=== PATIENT | female | born 1925 | race Caucasian/White ===

== ENCOUNTER 2016-08-18 10:12 | Emergency (ER) | payer MEDICARE, OTHER ==
[2016-08-18 10:46] VITALS: BP 116/63
--- NOTE | 2016-08-18 11:26 | EDM.PDOC ---
ED HPI Skin/Rash - General Chief Complaint: Skin Complaint Stated Complaint: LOWER BODY RASH Time Seen by Provider: 08/18/16 11:00 Source: Reports: Patient, Family (daughter) - History of Present Illness INITIAL COMMENTS - FREE TEXT/NARRATIVE: Patient presents with rash that started on lower back 6 days ago and has since spread laterally around the side to her right lower abdomen. The spreading from lateral side to abdomen just occurred in last 18 hours per daughter. Pt has dementia and has lived with her daughter for 3.5 years. Pt hasn't complained about the rash and seems comfortable. Daughter has noticed that her dementia has seemed a little worse than usual for about a week and has also noticed a foul smell from her urine. No dysuria, frequency or other changes that she knows of. Pt denies dysuria or other changes. Appetite has been decreased a few days. - Related Data Allergies Allergy/AdvReac Type Severity Reaction Status Date / Time penicillin G Allergy Cannot Verified 08/18/16 10:27 Remember venom-honey bee Allergy Cannot Verified 08/18/16 10:27 [bee venom (honey bee)] Remember Home Meds: Ambulatory Orders Medication Instructions Recorded Confirmed Clopidogrel Bisulfate [Clopidogrel] 75 mg PO BEDTIME 08/18/16 08/18/16 Donepezil HCl [Donepezil HCl] 10 mg PO BEDTIME 08/18/16 08/18/16 FA/Lycopene/Lut/MV,Ca,Iron,Min 1 tab PO DAILY 08/18/16 08/18/16 [Centrum] Levothyroxine Sodium [Synthroid] 112 mcg PO BEDTIME 08/18/16 08/18/16 Melatonin 5 mg PO BEDTIME 08/18/16 08/18/16 Memantine HCl [Namenda] 5 mg PO BID 08/18/16 08/18/16 Metoprolol Succinate [Toprol XL] 25 mg PO BEDTIME 08/18/16 08/18/16 Mirtazapine [Remeron] 22.5 mg PO BEDTIME 08/18/16 08/18/16 Oxybutynin Chloride [Ditropan Xl] 10 mg PO BEDTIME 08/18/16 08/18/16 Sertraline [Zoloft] 100 mg PO BID 08/18/16 08/18/16 Valsartan [Diovan] 160 mg PO BEDTIME 08/18/16 08/18/16 Vit B12/Iod/Mg/Zn/Se/Herb#193 1 tab PO BEDTIME 08/18/16 08/18/16 [Adrenoid Capsule] atorvaSTATin [Lipitor] 10 mg PO BEDTIME 08/18/16 08/18/16 risperiDONE [risperiDONE] 0.25 mg PO BEDTIME 08/18/16 08/18/16 Social & Family History - Tobacco Use Smoking Status *Q: Never Smoker Second Hand Smoke Exposure: Yes - Caffeine Use Caffeine Use: Reports: Coffee - Recreational Drug Use Recreational Drug Use: No ED ROS GENERAL - Review of Systems Review Of Systems: See Below Constitutional: Reports: decreased appetite. Denies: fever, chills HEENT: Reports: No symptoms Respiratory: Reports: cough (mild for a couple days). Denies: shortness of breath Cardiovascular: Denies: Chest pain, Syncope GI/Abdominal: Reports: Constipation (alternates between constipation and diarrhea but usually passes stools [id number]. Most recent was yesterday.), Diarrhea. Denies: Stool incontinence, Vomiting : Denies: dysuria, pain, urgency, urinary retention Musculoskeletal: Reports: no symptoms Skin: Denies: cyanosis, jaundice, mottled, pallor, diaphoresis Neurological: Reports: confusion (chronic dementia), difficulty walking (a little weaker than usual and walking less), weakness. Denies: dizziness Psychiatric: Denies: Agitation, Anxiety ED EXAM, SKIN/RASH Exam: See Below Exam Limited By: No limitations General Appearance: alert, WD/WN, no apparent distress Eye Exam: bilateral eye: EOMI, normal inspection, PERRL Ears: normal external exam, hearing grossly normal Nose: normal inspection Throat/Mouth: Normal lips, Normal voice, No airway compromise Head: atraumatic, normocephalic Neck: full range of motion Respiratory/Chest: no respiratory distress, lungs clear, normal breath sounds, no accessory muscle use. No: crackles, rales, rhonchi, wheezing, stridor Cardiovascular: regular rate, rhythm, no murmur GI/Abdominal: soft, non tender (initially LUQ seemed tender but after she became accustomed to my palpation it wasn't tender.), no organomegaly, distended (mildly). No: rigid Back Exam: No: CVA tenderness (L), CVA tenderness (R) Extremities: normal inspection, normal range of motion, non-tender, no pedal edema Neurological: alert, no motor/sensory deficits Psychiatric: normal affect, normal mood Skin: Warm, Dry, Intact, Normal color, No rash Location, Skin: abdomen, back (an erythematous band of rash extends from lumbar midline to anterior midline at low abdomen. The rash is approx 5 inches wide and has numerous scaly, crusty patches. No acute blisters currently but appearance of old blisters that have dried and cracked open. Consistent with shingles.) Associated features: No: warmth, tenderness, swelling, induration Course - Vital Signs Last Recorded V/S: Last Vital Signs Temp 99.9 F 08/18/16 10:40 Pulse 63 08/18/16 10:40 Resp 18 08/18/16 10:40 BP 116/63 08/18/16 10:40 Pulse Ox 93 L 08/18/16 10:40 - Orders/Labs/Meds Orders: Active Orders 24 hr Category Date Time Status CULTURE URINE [RM] Stat Lab 08/18/16 12:37 Ordered Ciprofloxacin [Ciprofloxacin HCl] Med 08/18/16 12:45 Ordered 250 mg PO BID valACYclovir [Valtrex] Med 08/18/16 12:45 Ordered 1,000 mg PO TID Medication Orders Ciprofloxacin (Ciprofloxacin Hcl) 250 mg PO BID [facility] Stop: 08/18/16 21:01 Last Admin: 08/18/16 13:03 Dose: 250 mg Valacyclovir HCl (Valtrex) 1,000 mg PO TID TANYA Stop: 08/18/16 21:01 Last Admin: 08/18/16 13:03 Dose: 1,000 mg Labs: Laboratory Tests 08/18/16 08/18/16 08/18/16 Range/Units 11:25 11:25 11:45 WBC 8.1 (5.0-10.0) 10^3/uL RBC 4.36 (3.80-5.50) 10^6/uL Hgb 13.1 (12.0-16.0) g/dL Hct 39.2 (37.0-47.0) % MCV 89.8 (82.0-92.0) fL MCH 30.0 (27.0-31.0) pg MCHC 33.4 (32.0-36.0) g/dL RDW 14.6 H (11.5-14.5) % Plt Count 144 L (150-300) 10^3/uL MPV 6.4 L (7.4-10.4) fL Neut % (Auto) 50.9 (50.0-70.0) % Lymph % (Auto) 40.4 H (20.0-40.0) % [place] % (Auto) 6.1 (2.0-8.0) % Eos % (Auto) 1.9 (1.0-3.0) % Baso % (Auto) 0.7 (0.0-1.0) % Neut # 4.0 (2.5-7.0) 10^3/uL Lymph # 3.3 (1.0-4.0) 10^3/uL [place] # 0.5 (0.1-0.8) 10^3/uL Eos # 0.2 (0.1-0.3) 10^3/uL Baso # 0.1 (0.0-0.1) 10^3/uL Sodium 144 (136-145) mmol/L Potassium 3.8 (3.3-5.3) mmol/L Chloride 108 (98-115) mmol/L Carbon Dioxide 26.1 (21.0-32.0) mmol/L BUN 24 (6-25) mg/dL Creatinine 1.04 (0.51-1.17) mg/dL Est Cr Clr Drug Dosing 29.00 mL/min Estimated GFR (MDRD) 50 mL/min Glucose 113 H (70-110) mg/dL Calcium 8.5 L (8.7-10.3) mg/dL Specimen Type Urinvoid Urine Color Dark yellow H (YELLOW) Urine Appearance Clear (CLEAR) Urine pH 5.5 (5.0-9.0) Ur Specific [place] 1.020 (1.005-1.030) Urine Protein 30 H (NEGATIVE) mg/dL Urine Glucose (UA) Negative (NEGATIVE) mg/dL Urine Ketones Trace H (NEGATIVE) mg/dL Urine Occult Blood Negative (NEGATIVE) Urine Nitrite Negative (NEGATIVE) Urine Bilirubin Negative (NEGATIVE) Urine Urobilinogen 0.2 (0.2-1.0) E.U./dL Ur Leukocyte Esterase Small H (NEGATIVE) Urine RBC 0-5 /HPF Urine WBC 5-10 H /HPF Ur Epithelial Cells Rare /LPF Urine Bacteria Moderate H (NONE TO FEW) /HPF Urine Yeast Few H (NEGATIVE) /HPF Meds: Medications Generic Name Dose Route Start Last Admin Trade Name Frelino PRN Reason Stop Dose Admin Ciprofloxacin 250 mg 08/18/16 12:45 08/18/16 13:03 Ciprofloxacin Hcl PO 08/18/16 21:01 250 mg BID TANYA Administration Valacyclovir HCl 1,000 mg 08/18/16 12:45 08/18/16 13:03 Valtrex PO 08/18/16 21:01 1,000 mg TID TANYA Administration Discontinued Medications Generic Name Dose Route Start Last Admin Trade Name Freq PRN Reason Stop Dose Admin Ciprofloxacin Confirm 08/18/16 12:53 Ciprofloxacin Hcl Administered 08/18/16 12:54 Dose 250 mg .ROUTE .STK-MED ONE Valacyclovir HCl Confirm 08/18/16 12:56 Valtrex Administered 08/18/16 12:57 Dose 3,000 mg .ROUTE .STK-MED ONE - Re-Assessments/Exams Free Text/Narrative Re-Assessment/Exam: 08/18/16 12:52 Discussed findings and treatment plans with pt's daughter. Initiated treatment with Cipro and Valtrex in ER and dispensed doses for first 24 hours from ER. Patient remained stable throughout ER course and discharge. Departure - Departure Time of Disposition: 12:49 Disposition: Home, Self-Care 01 Condition: good Clinical Impression: Shingles outbreak Qualifiers: Herpes zoster complications: without complications Qualified Code(s): B02.9 - Zoster without complications UTI (urinary tract infection) Qualifiers: Urinary tract infection type: acute cystitis Hematuria presence: without hematuria Qualified Code(s): N30.00 - Acute cystitis without hematuria Instructions: Shingles, [id number] Referrals: Radu Domingo MD [Primary Care Provider] - Forms: ED Department Discharge Additional Instructions: 1. Take the Valacyclovir and Cipro as directed. 2. Follow up with your PCP in a week for recheck of the Shingles and the UTI. 3. Recheck sooner if worsening. - My Orders Last 24 Hours: My Active Orders 08/18/16 12:37 CULTURE URINE [RM] Stat 08/18/16 12:45 Ciprofloxacin [Ciprofloxacin HCl] 250 mg PO BID valACYclovir [Valtrex] 1,000 mg PO TID - Assessment/Plan Last 24 Hours: My Active Orders 08/18/16 12:37 CULTURE URINE [RM] Stat 08/18/16 12:45 Ciprofloxacin [Ciprofloxacin HCl] 250 mg PO BID valACYclovir [Valtrex] 1,000 mg PO TID
[2016-08-18] MEDS ORDERED: valACYclovir 500 MG Tab PO SCH (12:45)
[2016-08-18] MEDS ORDERED: Ciprofloxacin 250 MG Tab PO SCH (12:45)
[2016-08-18] MEDS ORDERED: Ciprofloxacin 250 MG Tab ONE (12:53)
[2016-08-18] MEDS ORDERED: valACYclovir 500 MG Tab ONE (12:56)
== END 2016-08-18 13:20 | disposition home or self-care (01) ==
LOC: KA.ED 10:12
DX: B02.9 Zoster without complications (principal); N30.00 Acute cystitis without hematuria; Z88.0 Allergy status to penicillin; Z79.899 Other long term (current) drug therapy
CPT/HCPCS: 36415; 80048; 81001; 85025; 87086; 99283; A9270

== ENCOUNTER 2016-09-03 17:09 | Inpatient (IN) | payer MEDICARE, OTHER ==
[2016-09-03] MEDS ORDERED: Sodium Chloride 0.9% 1,000 ML ONE (18:18)
[2016-09-03] MEDS ORDERED: Sodium Chloride 0.9% 1,000 ML IV ONE (18:18)
[2016-09-03] MEDS ORDERED: Sodium Chloride 0.9% 5 ML Syringe FLUSH PRN (18:18)
--- NOTE | 2016-09-03 18:21 | EDM.PDOC ---
ED HPI GENERAL MEDICAL PROBLEM - General Chief Complaint: Skin Complaint Stated Complaint: LEFT SIDE HIP PAIN,WEAKNESS Time Seen by Provider: 09/03/16 17:41 Source of Information: Reports: Patient, Family (DAUGHTER) History Limitations: Reports: No limitations - History of Present Illness INITIAL COMMENTS - FREE TEXT/NARRATIVE: PT PRESENTS WITH LEFT GROIN PAIN. FAMILY STATES SHE WAS DIAGNOSED WITH SHINGLES 2 WEEKS AGO AND TAKING ACYCLOVIR. RASH IS ON RIGHT FLANK AND EXTENDS AROUND ABD TO GROIN AND IS IMPROVING. HOWEVER, PAIN DEVELOPED TODAY IN LEFT GROIN AREA. DENIES CP, SOB, FALL, FEVER, N/V/D. Onset: gradual Duration: Getting worse Location: Reports: abdomen, back Quality: Reports: Ache, Burning Severity: moderate Improves with: Reports: None Worsens with: Reports: Movement Associated Symptoms: Reports: rash. 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 - Related Data Allergies Allergy/AdvReac Type Severity Reaction Status Date / Time penicillin G Allergy Cannot Verified 09/03/16 17:22 Remember venom-honey bee Allergy Cannot Verified 09/03/16 17:22 [bee venom (honey bee)] Remember Home Meds: Home Meds Clopidogrel Bisulfate [Clopidogrel] 75 mg PO BEDTIME 08/18/16 [History] Donepezil HCl [Donepezil HCl] 10 mg PO BEDTIME 08/18/16 [History] FA/Lycopene/Lut/MV,Ca,Iron,Min [Centrum] 1 tab PO DAILY 08/18/16 [History] Levothyroxine Sodium [Synthroid] 112 mcg PO BEDTIME 08/18/16 [History] Melatonin 5 mg PO BEDTIME 08/18/16 [History] Memantine HCl [Namenda] 5 mg PO BID 08/18/16 [History] Metoprolol Succinate [Toprol XL] 25 mg PO BEDTIME 08/18/16 [History] Mirtazapine [Remeron] 22.5 mg PO BEDTIME 08/18/16 [History] Oxybutynin Chloride [Ditropan Xl] 10 mg PO BEDTIME 08/18/16 [History] Sertraline [Zoloft] 100 mg PO BID 08/18/16 [History] Valsartan [Diovan] 160 mg PO BEDTIME 08/18/16 [History] Vit B12/Iod/Mg/Zn/Se/Herb#193 [Adrenoid Capsule] 1 tab PO BEDTIME 08/18/16 [ History] atorvaSTATin [Lipitor] 10 mg PO BEDTIME 08/18/16 [History] risperiDONE [risperiDONE] 0.25 mg PO BEDTIME 08/18/16 [History] Past Medical History HEENT History: Reports: Cataract, Impaired vision, Macular degeneration Cardiovascular History: Reports: Hypertension, DC, Pacemaker Gastrointestinal History: Reports: Irritable bowel syndrome Genitourinary History: Reports: Urinary incontinence 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 right arm and left wrist Neurological History: Reports: Vertigo, Other (see below) Other Neuro History: dementia Psychiatric History: Reports: Anxiety, Dementia, Depression, OCD, Panic attack Endocrine/Metabolic History: Reports: Hypothyroidism - Infectious Disease History Infectious Disease History: Reports: Chicken pox, Shingles - Past Surgical History HEENT Surgical History: Reports: Cataract surgery, Tonsillectomy Neurological Surgical History: Reports: None Social & Family History - Tobacco Use Smoking Status *Q: Never Smoker Second Hand Smoke Exposure: Yes - Caffeine Use Caffeine Use: Reports: Coffee - Recreational Drug Use Recreational Drug Use: No ED ROS GENERAL - Review of Systems Review Of Systems: ROS reveals no pertinent complaints other than HPI. Constitutional: Reports: no symptoms HEENT: Reports: No symptoms Respiratory: Reports: No Symptoms Cardiovascular: Reports: No symptoms Endocrine: Reports: no symptoms GI/Abdominal: Reports: No symptoms : Reports: no symptoms Musculoskeletal: Reports: no symptoms Skin: Reports: rash Neurological: Reports: No Symptoms Psychiatric: Reports: No symptoms Hematologic/Lymphatic: Reports: swollen glands (LEFT GROIN) Immunologic: Reports: no symptoms ED EXAM, GENERAL - Physical Exam Exam: See Below Exam Limited By: No limitations General Appearance: alert, WD/WN, no apparent distress Nose: normal inspection, normal mucosa, no blood Throat/Mouth: Normal inspection, Normal oropharynx, No airway compromise Head: atraumatic, normocephalic Neck: normal inspection, supple Respiratory/Chest: no respiratory distress, lungs clear, normal breath sounds, no accessory muscle use, chest non-tender Cardiovascular: regular rate, rhythm, no murmur GI/Abdominal: normal bowel sounds, soft, non tender Back Exam: normal inspection. No: CVA tenderness (L), CVA tenderness (R) Extremities: normal inspection, other (NO LLE WOUNDS, SIGNS OF INFECTION, ECCHYMOSIS, OR HIP PAIN ON PALP NOTED). No: no pedal edema, joint swelling, increased warmth, redness Neurological: alert, oriented, normal cognition Psychiatric: normal affect, normal mood Skin Exam: Warm, Dry, Intact, Normal color, Rash, Zoster-like rash, Other ( RIGHT FLANK EXTENDING TO ABD AND RIGHT GROIN ARE RESOVING HERPATIC LESIONS AT DIFERENT STAGES. NO ERYTHEMA, PUS, OR SIGN OF INFECTION NOTED.). No: Erythema, Increased warmth Lymphatic: other (RIGHT INGUINAL LYMPHADENOPTHY 1- 2CM MASS, WITHOUT FLUCTUANCE OR ERYTHEMA.) Course - Vital Signs Last Recorded V/S: Last Vital Signs Temp 97.8 F 09/03/16 17:23 Pulse 82 09/03/16 17:23 Resp 24 H 09/03/16 17:23 BP 154/74 H 09/03/16 17:23 Pulse Ox 96 09/03/16 17:23 - Orders/Labs/Meds Orders: Active Orders 24 hr Category Date Time Status CBC WITH AUTO DIFF [HEME] Stat Lab 09/03/16 17:43 Ordered COMPREHENSIVE METABOLIC PN,CMP [CHEM] Stat Lab 09/03/16 17:43 Ordered SEDIMENTATION RATE MANUAL [HEME] Stat Lab 09/03/16 17:43 Ordered UA W/MICROSCOPIC [URIN] Stat Lab 09/03/16 17:43 Uncollected Labs: Laboratory Tests 09/03/16 Range/Units 18:00 WBC 10.9 H (5.0-10.0) 10^3/uL RBC 4.31 (3.80-5.50) 10^6/uL Hgb 13.2 (12.0-16.0) g/dL Hct 39.6 (37.0-47.0) % MCV 91.8 (82.0-92.0) fL MCH 30.6 (27.0-31.0) pg MCHC 33.3 (32.0-36.0) g/dL RDW 16.6 H (11.5-14.5) % Plt Count 132 L (150-300) 10^3/uL MPV 6.4 L (7.4-10.4) fL Neut % (Auto) 78.0 H (50.0-70.0) % Lymph % (Auto) 15.8 L (20.0-40.0) % [place] % (Auto) 5.1 (2.0-8.0) % Eos % (Auto) 0.9 L (1.0-3.0) % Baso % (Auto) 0.2 (0.0-1.0) % Neut # 8.5 H (2.5-7.0) 10^3/uL Lymph # 1.7 (1.0-4.0) 10^3/uL [place] # 0.6 (0.1-0.8) 10^3/uL Eos # 0.1 (0.1-0.3) 10^3/uL Baso # 0.0 (0.0-0.1) 10^3/uL - Re-Assessments/Exams Free Text/Narrative Re-Assessment/Exam: 09/03/16 18:50 PT AFEBRILE, NONTOXIC APPEARING, NO C/O PAIN, FAMILY AT BEDSIDE. DISCUSSED CASE WITH DR ESPINOZA, WILL ADMIT TO OBS AND FOLLOW Departure - Departure Time of Disposition: 18:55 Disposition: Refer to Observation Condition: good Clinical Impression: Lymphadenopathy, inguinal Herpes zoster Qualifiers: Herpes zoster complications: without complications Qualified Code(s): B02.9 - Zoster without complications - My Orders Last 24 Hours: My Active Orders 09/03/16 17:43 CBC WITH AUTO DIFF [HEME] Stat COMPREHENSIVE METABOLIC PN,CMP [CHEM] Stat SEDIMENTATION RATE MANUAL [HEME] Stat UA W/MICROSCOPIC [URIN] Stat - Assessment/Plan Last 24 Hours: My Active Orders 09/03/16 17:43 CBC WITH AUTO DIFF [HEME] Stat COMPREHENSIVE METABOLIC PN,CMP [CHEM] Stat SEDIMENTATION RATE MANUAL [HEME] Stat UA W/MICROSCOPIC [URIN] Stat Assessment:: HERPES ZOSTER/ GROIN PAIN / INGUINAL LYMPHADENOPATHY Plan: ADMIT TO OBS BY DR ESPINOZA
[2016-09-03] MEDS ORDERED: cefTRIAXone 1 GM Vial IVPUSH ONE (18:51)
[2016-09-03] MEDS ORDERED: atorvaSTATin 10 MG Tab PO SCH (21:00)
[2016-09-03] MEDS ORDERED: Donepezil 10 MG Tab PO SCH (21:00)
[2016-09-03] MEDS: Oxybutynin 5 MG Tab.ER PO SCH (21:45)
[2016-09-03] MEDS: risperiDONE 0.25 MG Tab PO SCH (21:46)
[2016-09-03] MEDS: Metoprolol Succinate 25 MG Tab.ER PO SCH (21:46)
[2016-09-03] MEDS: Sertraline 50 MG Tab PO SCH (21:46)
[2016-09-03] MEDS: Mirtazapine 15 MG Tab PO SCH (21:47)
[2016-09-03] MEDS: Levothyroxine 112 MCG Tab PO SCH (21:47)
[2016-09-03] MEDS: Clopidogrel 75 MG Tab PO SCH (21:47)
[2016-09-03] MEDS: Memantine 10 MG Tab PO SCH (22:00)
[2016-09-03] MEDS: Acetaminophen 325 MG Tab PO SCH (22:00)
[2016-09-03] MEDS: Morphine 2 MG/ML Syringe IVPUSH PRN (22:04)
[2016-09-04] MEDS: Memantine 10 MG Tab PO SCH (09:02)
[2016-09-04] MEDS: Sertraline 50 MG Tab PO SCH ×2 (09:03→20:27)
[2016-09-04] MEDS: Acetaminophen 325 MG Tab PO SCH ×3 (09:03→20:25)
--- NOTE | 2016-09-04 10:52 | PCM.HP ---
H&P History of Present Illness - General Date of Service: 09/04/16 Admit Problem/Dx: Admission Diagnosis/Problem Admission Diagnosis/Problem Herpes zoster Source of Information: Old records, RN History Limitations: Reports: Altered mental status - History of Present Illness Initial Comments - Free Text/Narative: This very pleasant but slightly confused 89-year-old female was admitted through the emergency department last night after she came in with left groin pain. She does have a recent history of herpes zoster about 2 weeks ago and had been on antivirals and does have a significant rash in her right groin extending around into her right flank area. Although the patient is pleasantly confused she denies any falls, however does admit to decreased appetite. No fever, no nausea vomiting or diarrhea. The patient does live with her daughter with past 3 years. Patient has lived with daughter the past 3 years due to dementia, daughter states patient has progressively become more weak and was going to bring her in earlier however do to severe pain they brought her to the ED sooner. Nurses report took several staff to get her out of the vehicle due to increase in pain however pain was more generalized somewhat left lower quadrant transverse abdomen. Daughter does state patient cannot tolerate coleslaw, peanuts and popcorn due to abdominal pain and diarrhea. Left Upper Hip Pain Score (Numeric/FACES): 8 - Related Data Allergies/Adverse Reactions: Allergies Allergy/AdvReac Type Severity Reaction Status Date / Time penicillin G Allergy Cannot Verified 09/04/16 01:11 Remember venom-honey bee Allergy Cannot Verified 09/04/16 01:11 [bee venom (honey bee)] Remember Home Medications: Home Meds Clopidogrel Bisulfate [Clopidogrel] 75 mg PO BEDTIME 08/18/16 [History] Donepezil HCl [Donepezil HCl] 10 mg PO BEDTIME 08/18/16 [History] FA/Lycopene/Lut/MV,Ca,Iron,Min [Centrum] 1 tab PO DAILY 08/18/16 [History] Levothyroxine Sodium [Synthroid] 112 mcg PO BEDTIME 08/18/16 [History] Melatonin 5 mg PO BEDTIME 08/18/16 [History] Memantine HCl [Namenda] 5 mg PO BID 08/18/16 [History] Metoprolol Succinate [Toprol XL] 25 mg PO BEDTIME 08/18/16 [History] Mirtazapine [Remeron] 22.5 mg PO BEDTIME 08/18/16 [History] Oxybutynin Chloride [Ditropan Xl] 10 mg PO BEDTIME 08/18/16 [History] Sertraline [Zoloft] 100 mg PO BID 08/18/16 [History] Valsartan [Diovan] 160 mg PO BEDTIME 08/18/16 [History] Vit B12/Iod/Mg/Zn/Se/Herb#193 [Adrenoid Capsule] 1 tab PO BEDTIME 08/18/16 [ History] atorvaSTATin [Lipitor] 10 mg PO BEDTIME 08/18/16 [History] risperiDONE [risperiDONE] 0.25 mg PO BEDTIME 08/18/16 [History] Past Medical History HEENT History: Reports: Cataract, Impaired vision, Macular degeneration Cardiovascular History: Reports: Hypertension, [place], Pacemaker Gastrointestinal History: Reports: Irritable bowel syndrome Genitourinary History: Reports: Urinary incontinence 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 right arm and left wrist Neurological History: Reports: Vertigo, Other (see below) Other Neuro History: dementia Psychiatric History: Reports: Anxiety, Dementia, Depression, OCD, Panic attack Endocrine/Metabolic History: Reports: Hypothyroidism - Infectious Disease History Infectious Disease History: Reports: Chicken pox, Shingles - Past Surgical History HEENT Surgical History: Reports: Cataract surgery, Tonsillectomy Neurological Surgical History: Reports: None Social & Family History - Family History HEENT: Reports: Macular degeneration (Sister with macular degeneration) Cardiac: Reports: None Respiratory: Reports: Asthma (Mother with cancer however did have asthma) GI: Reports: None : Reports: None OBGYN: Reports: None Musculoskeletal: Reports: None Neurological: Reports: None Psychiatric: Reports: None Endocrine/Metabolic: Reports: None Hematologic: Reports: None Immunologic: Reports: None Dermatologic: Reports: None Oncologic: Reports: Other (see below) (Mother unknown type of cancer, daughter cancer unknown) - Tobacco Use Smoking Status *Q: Never Smoker Second Hand Smoke Exposure: Yes - Caffeine Use Caffeine Use: Reports: Coffee - Recreational Drug Use Recreational Drug Use: No H&P Review of Systems - Review of Systems: Review Of Systems: See Below (Complete review of systems unable to attend due to altered mental status) General: Reports: decreased appetite HEENT: Reports: no symptoms Pulmonary: Reports: No Symptoms Cardiovascular: Reports: no symptoms Gastrointestinal: Reports: Abdominal pain (Points to her left lower abdominal quadrant for pain) Genitourinary: Reports: no symptoms Skin: Reports: rash (Herpes zoster rash right groin extending around the right flank) Psychiatric: Reports: confusion. Denies: agitation Neurological: Reports: Confusion, Pre-Existing Deficit Exam - Exam Exam: See Below - Vital Signs Vital Signs: Last Vital Signs Temp 98.0 F 09/04/16 06:28 Pulse 63 09/04/16 06:28 Resp 18 09/04/16 06:28 BP 122/63 09/04/16 06:28 Pulse Ox 93 L 09/04/16 06:50 Weight: 152 lb - Exam Quality Assessment: No: supplemental oxygen General: alert, cooperative. No: oriented HEENT: Hearing intact, Mucosa moist & pink Neck: supple, trachea midline, 2 Lungs: Clear to auscultation, Normal respiratory effort Cardiovascular: regular rate, regular rhythm (Regular rhythm paced) Abdomen: normal bowel sounds, soft. No: distention, absent bowel sounds, mass, McBurney's sign, Henderson's sign (Female) Exam: Deferred Back Exam: No: CVA tenderness (L), CVA tenderness (R) Extremities: normal inspection. No: edema Skin: other (Bruising right thigh) Neurological: strength equal bilateral, normal speech, normal tone, sensation intact Neuro Extensive - Mental Status: alert. No: oriented x3, memory intact Psychiatric: alert, normal affect, normal mood - Patient Data Lab Results last 24 hrs: Laboratory Results - last 24 hr 09/04/16 Range/Units 06:30 Specimen Type Urincc Urine Color Yellow (YELLOW) Urine Appearance Slightly cloudy H (CLEAR) Urine pH 5.0 (5.0-9.0) Ur Specific [place] 1.015 (1.005-1.030) Urine Protein Trace H (NEGATIVE) mg/dL Urine Glucose (UA) Negative (NEGATIVE) mg/dL Urine Ketones 15 H (NEGATIVE) mg/dL Urine Occult Blood Negative (NEGATIVE) Urine Nitrite Negative (NEGATIVE) Urine Bilirubin Small H (NEGATIVE) Urine Urobilinogen 0.2 (0.2-1.0) E.U./dL Ur Leukocyte Esterase Trace H (NEGATIVE) Urine RBC 10-20 H /HPF Urine WBC 5-10 H /HPF Ur Epithelial Cells Few /LPF Other Crystals /HPF Urine Bacteria Few (NONE TO FEW) /HPF Result Diagrams: 09/03/16 18:00 09/03/16 18:00 *Q Meaningful Use (ADM) - VTE *Q VTE Criteria *Q: - Stroke *Q Stroke Criteria *Q: - AMI *Q AMI Criteria *Q: Problem List Initiated/Reviewed/Updated: Yes Orders Last 24hrs: Active Orders 24 hr Category Date Time Status Regular Diet [DIET] Diet 09/04/16 Breakfast Active Acetaminophen [Tylenol] Med 09/03/16 21:00 Active 650 mg PO TID Clopidogrel [Plavix] Med 09/03/16 21:00 Active 75 mg PO BEDTIME Donepezil [Aricept] Med 09/03/16 21:00 Active 10 mg PO BEDTIME Levothyroxine Med 09/03/16 21:00 Active 112 mcg PO BEDTIME Melatonin Med 09/04/16 21:00 Once 6 mg PO BEDTIME ONE Melatonin [Melatonin] Med 09/03/16 21:00 Pending 5 mg PO BEDTIME Memantine [Namenda] Med 09/03/16 21:00 Active 5 mg PO BID Metoprolol Succinate [Toprol XL] Med 09/03/16 21:00 Active 25 mg PO BEDTIME Mirtazapine [Remeron] Med 09/03/16 21:00 Active 22.5 mg PO BEDTIME Morphine Med 09/03/16 21:28 Active 1 mg IVPUSH Q12H PRN Oxybutynin [Oxybutynin ER] Med 09/03/16 21:00 Active 10 mg PO BEDTIME Sertraline [Zoloft] Med 09/03/16 21:00 Active 100 mg PO BID Valsartan [Diovan] Med 09/03/16 21:00 Active 160 mg PO BEDTIME Vit B12/Iod/Mg/Zn/Se/Herb#193 [Adrenoid Capsule] Med 09/03/16 21:00 Pending 1 tab PO BEDTIME atorvaSTATin [Lipitor] Med 09/03/16 21:00 Active 10 mg PO BEDTIME risperiDONE [RisperiDAL] Med 09/03/16 21:00 Active 0.25 mg PO BEDTIME Medication Orders Acetaminophen (Tylenol) 650 mg PO TID [facility] Last Admin: 09/04/16 09:03 Dose: 650 mg Admin: 09/03/16 22:00 Dose: 650 mg Atorvastatin Calcium (Lipitor) 10 mg PO BEDTIME [facility] Last Admin: 09/03/16 21:46 Dose: 10 mg Clopidogrel Bisulfate (Plavix) 75 mg PO BEDTIME [facility] Last Admin: 09/03/16 21:47 Dose: 75 mg Donepezil HCl (Aricept) 10 mg PO BEDTIME [facility] Last Admin: 09/03/16 21:46 Dose: 10 mg Levothyroxine Sodium (Levothyroxine) 112 mcg PO BEDTIME [facility] Last Admin: 09/03/16 21:47 Dose: 112 mcg Melatonin (Melatonin) 6 mg PO BEDTIME ONE Stop: 09/04/16 21:01 Last Admin: 09/03/16 22:10 Dose: 6 mg Memantine (Namenda) 5 mg PO BID [facility] Last Admin: 09/04/16 09:02 Dose: 5 mg Admin: 09/03/16 22:00 Dose: 5 mg Metoprolol Succinate (Toprol Xl) 25 mg PO BEDTIME [facility] Last Admin: 09/03/16 21:46 Dose: 25 mg Mirtazapine (Remeron) 22.5 mg PO BEDTIME [facility] Last Admin: 09/03/16 21:47 Dose: 22.5 mg Morphine Sulfate (Morphine) 1 mg IVPUSH Q12H PRN PRN Reason: Pain (moderate 4-6) Last Admin: 09/03/16 22:04 Dose: 1 mg Non-Formulary Medication (Melatonin [Melatonin]) 5 mg PO BEDTIME [facility] Non-Formulary Medication (Vit B12/Iod/Mg/Zn/Se/Herb#193 [Adrenoid Capsule]) 1 tab PO BEDTIME [facility] Oxybutynin Chloride (Oxybutynin Er) 10 mg PO BEDTIME [facility] Last Admin: 09/03/16 21:45 Dose: 10 mg Risperidone (Risperidal) 0.25 mg PO BEDTIME [facility] Last Admin: 09/03/16 21:46 Dose: 0.25 mg Sertraline HCl (Zoloft) 100 mg PO BID [facility] Last Admin: 09/04/16 09:03 Dose: 100 mg Admin: 09/03/16 21:46 Dose: 100 mg Sodium Chloride (Syrex Flush) 5 ml FLUSH Q8HR PRN PRN Reason: Keep Vein Open Last Admin: 09/03/16 23:00 Dose: 5 ml Valsartan (Diovan) 160 mg PO BEDTIME [facility] Last Admin: 09/03/16 21:47 Dose: 160 mg Assessment/Plan Comment:: HISTORY OF PRESENT ILLNESS This very pleasant but slightly confused 89-year-old female was admitted through the emergency department last night after she came in with left groin pain. She does have a recent history of herpes zoster about 2 weeks ago and had been on antivirals and does have a significant rash in her right groin extending around into her right flank area. Although the patient is pleasantly confused she denies any falls, however does admit to decreased appetite. No fever, no nausea vomiting or diarrhea. The patient does live with her daughter. CODE STATUS full code IMPRESSION/PLAN Left lower quadrant abdominal pain, questionable etiology, could be mild diverticulitis, will continue with Rocephin, watchful waiting at this time. Herpes zoster, calamine lotion, gabapentin 100 mg by mouth 3 times a day History acute myocardial infarction, currently pacemaker Coronary artery disease, continue with DAPT; Hyperlipidemia Hypertension Chronic kidney disease, stage III Dementia; Hypothyroidism Macular degeneration, dry, OD Macular degeneration, wet, OS Overactive bladder, currently on Ditropan XL Esophageal reflux Overall plan, ongoing monitoring for any abdominal pathology, discontinue Namenda and Aricept, add gabapentin, calamine lotion. Discontinue Lipitor, mild fluids IV right now since patient is not tolerating orals--place on clear liquid diet
[2016-09-04] MEDS ORDERED: Ondansetron 4 MG/2 ML SDV IVPUSH PRN (11:15)
[2016-09-04] MEDS: Dextrose 5%-0.45% NaCl 1,000 ML IV SCH (13:49)
[2016-09-04] MEDS: Gabapentin 100 MG Cap PO SCH ×2 (13:52→20:26)
[2016-09-04] MEDS: Melatonin 3 MG Tab PO SCH ×2 (15:48→20:24)
[2016-09-04] MEDS: [UNRECOGNIZED DRUG - OTHER] PO SCH ×2 (15:48→20:27)
[2016-09-04] MEDS: cefTRIAXone 1 GM Vial IVPUSH SCH (16:11)
[2016-09-04] MEDS: Morphine 2 MG/ML Syringe IVPUSH PRN (18:13)
[2016-09-04] MEDS: risperiDONE 0.25 MG Tab PO SCH (20:24)
[2016-09-04] MEDS: Levothyroxine 112 MCG Tab PO SCH (20:25)
[2016-09-04] MEDS: Clopidogrel 75 MG Tab PO SCH (20:26)
[2016-09-04] MEDS: Metoprolol Succinate 25 MG Tab.ER PO SCH (20:26)
[2016-09-04] MEDS: Mirtazapine 15 MG Tab PO SCH (20:26)
[2016-09-04] MEDS: Oxybutynin 5 MG Tab.ER PO SCH (20:26)
[2016-09-04] MEDS ORDERED: Melatonin 3 MG Tab PO ONE (21:00)
[2016-09-05] MEDS: Dextrose 5%-0.45% NaCl 1,000 ML IV SCH (04:57)
[2016-09-05] MEDS: Acetaminophen 325 MG Tab PO SCH (09:45)
[2016-09-05] MEDS: Gabapentin 100 MG Cap PO SCH ×3 (09:45→20:32)
[2016-09-05] MEDS: Sertraline 50 MG Tab PO SCH ×2 (09:46→20:32)
[2016-09-05] MEDS ORDERED: Calamine/Zinc Oxide Lotion 118 ML Bottle TOP PRN (10:18)
[2016-09-05] MEDS ORDERED: Bisacodyl 10 MG Supp RECTAL ONE (11:01)
--- NOTE | 2016-09-05 11:14 | PCM.PN ---
- General Info Date of Service: 09/05/16 Functional Status: Reports: tolerating diet. Denies: pain controlled, ambulating - Review of Systems General: Reports: Weakness HEENT: Reports: no symptoms Pulmonary: Reports: no symptoms Cardiovascular: Reports: No Symptoms Gastrointestinal: Denies: Abdominal pain, Decreased appetite Genitourinary: Reports: no symptoms Musculoskeletal: Reports: back pain, joint pain Skin: Reports: pallor Neurological: Reports: Confusion, Pre-Existing Deficit, Difficulty Walking, Weakness, Gait Disturbance Psychiatric: Reports: confusion - Patient Data Vitals - most recent: Last Vital Signs Temp 97.5 F 09/05/16 06:11 Pulse 68 09/05/16 06:11 Resp 20 09/05/16 06:11 BP 177/85 H 09/05/16 06:11 Pulse Ox 97 09/05/16 06:20 Weight - most recent: 152 lb I&O - last 24 hours: Intake & Output 09/04/16 09/05/16 09/05/16 22:59 06:59 14:59 Intake Total 30 1053 Output Total 500 Balance 30 553 Lab Results last 24 hrs: Laboratory Results - last 24 hr 09/05/16 Range/Units 07:20 WBC 7.6 (5.0-10.0) 10^3/uL RBC 4.24 (3.80-5.50) 10^6/uL Hgb 13.0 (12.0-16.0) g/dL Hct 38.6 (37.0-47.0) % MCV 91.0 (82.0-92.0) fL MCH 30.5 (27.0-31.0) pg MCHC 33.5 (32.0-36.0) g/dL RDW 16.7 H (11.5-14.5) % Plt Count 141 L (150-300) 10^3/uL MPV 6.5 L (7.4-10.4) fL Neut % (Auto) 67.3 (50.0-70.0) % Lymph % (Auto) 21.8 (20.0-40.0) % [place] % (Auto) 6.9 (2.0-8.0) % Eos % (Auto) 3.3 H (1.0-3.0) % Baso % (Auto) 0.7 (0.0-1.0) % Neut # 5.0 (2.5-7.0) 10^3/uL Lymph # 1.7 (1.0-4.0) 10^3/uL [place] # 0.5 (0.1-0.8) 10^3/uL Eos # 0.3 (0.1-0.3) 10^3/uL Baso # 0.1 (0.0-0.1) 10^3/uL [place]ur Results last 24 hrs: Microbiology 09/04/16 06:30 Urine Culture - Preliminary Urine, Clean Catch No Growth Med Orders - Current: Current Medications Acetaminophen (Tylenol) 650 mg PO TID [facility] Last Admin: 09/05/16 09:45 Dose: 650 mg Bisacodyl (Dulcolax) 10 mg RECTAL ONETIME ONE Stop: 09/05/16 11:02 Calamine/Zinc Oxide (Calamine Lotion) 0 ml TOP TID PRN PRN Reason: itch Ceftriaxone Sodium (Rocephin) 1 gm IVPUSH Q24H [facility] Last Admin: 09/04/16 16:11 Dose: 1 gm Clopidogrel Bisulfate (Plavix) 75 mg PO BEDTIME [facility] Last Admin: 09/04/16 20:26 Dose: 75 mg Gabapentin (Neurontin) 100 mg PO TID [facility] Last Admin: 09/05/16 09:45 Dose: 100 mg Dextrose/Sodium Chloride (Dextrose 5%-1/2 Ns) 1,000 mls @ 70 mls/hr IV ASDIRECTED [facility] Last Admin: 09/05/16 04:57 Dose: 70 mls/hr Levothyroxine Sodium (Levothyroxine) 112 mcg PO BEDTIME [facility] Last Admin: 09/04/16 20:25 Dose: 112 mcg Melatonin (Melatonin) 6 mg PO BEDTIME [facility] Last Admin: 09/04/16 20:24 Dose: 6 mg Metoprolol Succinate (Toprol Xl) 25 mg PO BEDTIME [facility] Last Admin: 09/04/16 20:26 Dose: 25 mg Mirtazapine (Remeron) 22.5 mg PO BEDTIME [facility] Last Admin: 09/04/16 20:26 Dose: 22.5 mg Morphine Sulfate (Morphine) 1 mg IVPUSH Q12H PRN PRN Reason: Pain (moderate 4-6) Last Admin: 09/04/16 18:13 Dose: 1 mg Ondansetron HCl (Zofran) 4 mg IVPUSH Q4H PRN PRN Reason: Nausea/Vomiting Oxybutynin Chloride (Oxybutynin Er) 10 mg PO BEDTIME [facility] Last Admin: 09/04/16 20:26 Dose: 10 mg Vit B12/Iod/Mg/Zn/Se /Herb#193 [Adrenoid Capsule] 1 each PO BEDTIME [facility] Last Admin: 09/04/16 20:27 Dose: Not Given Risperidone (Risperidal) 0.25 mg PO BEDTIME [facility] Last Admin: 09/04/16 20:24 Dose: 0.25 mg Sertraline HCl (Zoloft) 100 mg PO BID [facility] Last Admin: 09/05/16 09:46 Dose: 100 mg Sodium Chloride (Syrex Flush) 5 ml FLUSH Q8HR PRN PRN Reason: Keep Vein Open Last Admin: 09/03/16 23:00 Dose: 5 ml Valsartan (Diovan) 160 mg PO BEDTIME [facility] Last Admin: 09/04/16 20:25 Dose: 160 mg Discontinued Medications Atorvastatin Calcium (Lipitor) 10 mg PO BEDTIME [facility] Last Admin: 09/03/16 21:46 Dose: 10 mg Ceftriaxone Sodium (Rocephin) 1 gm IVPUSH ONETIME ONE Stop: 09/03/16 18:52 Last Admin: 09/03/16 22:56 Dose: 1 gm Donepezil HCl (Aricept) 10 mg PO BEDTIME [facility] Last Admin: 09/03/16 21:46 Dose: 10 mg Sodium Chloride (Normal Saline) 1,000 mls @ 999 mls/hr IV .BOLUS ONE Stop: 09/03/16 19:18 Last Admin: 09/03/16 18:25 Dose: 999 mls/hr Sodium Chloride (Normal Saline) Confirm Administered Dose 1,000 mls @ as directed .ROUTE .STK-MED ONE Stop: 09/03/16 18:19 Last Admin: 09/03/16 18:40 Dose: Not Given Melatonin (Melatonin) 6 mg PO BEDTIME ONE Stop: 09/04/16 21:01 Last Admin: 09/03/16 22:10 Dose: 6 mg Memantine (Namenda) 5 mg PO BID [facility] Last Admin: 09/04/16 09:02 Dose: 5 mg - Exam Quality Assessment: No: supplemental oxygen General: alert, cooperative, no acute distress. No: oriented Neck: supple Lungs: Clear to auscultation, Normal respiratory effort Cardiovascular: Regular Rate, Regular Rhythm Abdomen: bowel sounds present, soft, no tenderness, no distension. No: rigidity , guarding, tenderness, distension, CVA tenderness Back Exam: No: CVA tenderness (L), CVA tenderness (R) Extremities: no edema Skin: No: rash Neurological: normal speech. No: normal gait Psy/Mental Status: alert - Problem List Review Problem List Initiated/Reviewed/Updated: Yes - My Orders Last 24 Hours: My Active Orders 09/04/16 11:15 Dextrose 5%-0.45% NaCl [Dextrose 5%-1/2 NS] 1,000 ml IV ASDIRECTED Ondansetron [Zofran] 4 mg IVPUSH Q4H PRN 09/04/16 14:00 Gabapentin [Neurontin] 100 mg PO TID 09/04/16 16:00 cefTRIAXone [Rocephin] 1 gm IVPUSH Q24H 09/04/16 Lunch Clear Liquid Diet [DIET] 09/05/16 10:18 Calamine/Zinc Oxide [Calamine Lotion] 0 ml TOP TID PRN - Plan Plan:: HISTORY OF PRESENT ILLNESS This very pleasant but slightly confused 89-year-old female was admitted through the emergency department last night after she came in with left groin pain. She does have a recent history of herpes zoster about 2 weeks ago and had been on antivirals and does have a significant rash in her right groin extending around into her right flank area. Although the patient is pleasantly confused she denies any falls, however does admit to decreased appetite. No fever, no nausea vomiting or diarrhea. The patient does live with her daughter. CODE STATUS full code IMPRESSION/PLAN Degenerative changes/arthritis Left hip with SI joint patholgy; impacting mobility and gait, unable to perform self ADL with ongoing pain. Add NSAID cream , lidoderm patch. Tylenol arthritis scheduled, may benefit with SI joint CARLOS injection. PT consultation. Herpes zoster, calamine lotion, gabapentin 100 mg by mouth 3 times a day History acute myocardial infarction, currently pacemaker Coronary artery disease, continue with DAPT; Hyperlipidemia Hypertension Chronic kidney disease, stage III Dementia; Hypothyroidism Macular degeneration, dry, OD Macular degeneration, wet, OS Overactive bladder, currently on Ditropan XL Esophageal reflux Overall plan, advance diet, Add NSAID cream, lidoderm patch, Tylenol arthritis scheduled, may benefit with SI joint CARLOS injection. PT consultation. Saline lock IV. Lumbar xray today. Patient need ongoing care and likely detention placement.
[2016-09-05] MEDS ORDERED: Diclofenac Sodium 1% Gel 100 GM Tube TOP PRN (11:18)
[2016-09-05] MEDS ORDERED: Sodium Chloride 0.9% 5 ML Syringe FLUSH PRN (11:27)
[2016-09-05] MEDS: Lidocaine 5% 700 MG Patch TOP SCH (13:22)
[2016-09-05] MEDS ORDERED: Acetaminophen 650 MG Tab.ER PO SCH (14:00)
[2016-09-05] MEDS: cefTRIAXone 1 GM Vial IVPUSH SCH (16:42)
[2016-09-05] MEDS: Acetaminophen 650 MG Tab.ER PO SCH ×2 (16:45→21:26)
[2016-09-05] MEDS: traMADol 50 MG Tab PO SCH (19:13)
[2016-09-05] MEDS: Oxybutynin 5 MG Tab.ER PO SCH (20:31)
[2016-09-05] MEDS: Clopidogrel 75 MG Tab PO SCH (20:32)
[2016-09-05] MEDS: risperiDONE 0.25 MG Tab PO SCH (20:32)
[2016-09-05] MEDS: Metoprolol Succinate 25 MG Tab.ER PO SCH (20:32)
[2016-09-05] MEDS: Melatonin 3 MG Tab PO SCH (20:32)
[2016-09-05] MEDS: Levothyroxine 112 MCG Tab PO SCH (20:33)
[2016-09-05] MEDS: [UNRECOGNIZED DRUG - OTHER] PO SCH (20:33)
[2016-09-05] MEDS: Mirtazapine 15 MG Tab PO SCH (20:33)
[2016-09-06] MEDS: Acetaminophen 650 MG Tab.ER PO SCH ×4 (05:05→21:16)
[2016-09-06] MEDS: Gabapentin 100 MG Cap PO SCH ×3 (08:43→20:32)
[2016-09-06] MEDS: Sertraline 50 MG Tab PO SCH ×2 (08:43→20:35)
[2016-09-06] MEDS: Lidocaine 5% 700 MG Patch TOP SCH (08:44)
[2016-09-06] MEDS: traMADol 50 MG Tab PO SCH ×2 (10:00→18:49)
[2016-09-06] MEDS ORDERED: Diatrizoate Meglumine/Diatrizoate Sodium 37% 120 ML Bottle PO ONE (15:54)
[2016-09-06] MEDS: cefTRIAXone 1 GM Vial IVPUSH SCH (16:25)
--- NOTE | 2016-09-06 17:08 | PN ---
09/06/2016 PATIENT NAME: LUISA NUNEZ PATIENT PROFILE: This is an 89-year-old patient who is seen today for followup. She has a good night and is fairly comfortable this morning. She has trouble getting out of the bed and walking. Pain is in the left groin and also in the lumbosacral region of the back. She is alert. She also has a history of herpes zoster of the right groin area. OBJECTIVE: VITAL SIGNS: Stable. Blood pressure is 145/77, pulse is 68 and temperature 98.4. Intake and output are satisfactory. HEAD: Negative. ENT: Negative. HEART: Stable. LUNGS: Stable. ABDOMEN: Soft. Examination of the right groin area reveals a healing herpes zoster rash. Left side of the groin is stable. The patient has trouble getting up from the bed. IMAGING: Lumbosacral spine x-ray showed discogenic disease at L5-S1 level and arthritis of the lower facet joints. I do not see anything acute at this time. LABORATORY DATA: Hemoglobin is 13, white count is 7.6. Her urine came back negative. FINAL DIAGNOSES: 1. 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 Continue nonsteroidal cream, Lidoderm patch, Tylenol and we also add a tramadol 50 mg b.i.d. 2. Herpes zoster, right groin. Continue calamine lotion. Gabapentin 100 mg three times a day. 3. History of myocardial infarction, currently with a pacemaker placement. Stable. 4. History of coronary artery disease, stable. 5. Hyperlipidemia, stable. 6. Hypertension, stable. 7. Chronic kidney disease, stage 3, stable. 8. Dementia, stable. 9. Hypothyroidism, stable. 10.Macular degeneration, mixed, dry on the right eye, stable. 11.Macular degeneration, wet, on the left eye, stable. 12.Overactive bladder, stable, currently on Ditropan XL. 13.Gastroesophageal reflux disease, stable. PLAN: Continue present management. We will advance diet and see how she does and continue with aggressive physical therapy to see if we can get her mobility increased. CT abdomen and pelvis were unremarkable. /[id number]/MODL MTDD
[2016-09-06] MEDS: Melatonin 3 MG Tab PO SCH (20:31)
[2016-09-06] MEDS: Levothyroxine 112 MCG Tab PO SCH (20:31)
[2016-09-06] MEDS: Clopidogrel 75 MG Tab PO SCH (20:32)
[2016-09-06] MEDS: Oxybutynin 5 MG Tab.ER PO SCH (20:32)
[2016-09-06] MEDS: Mirtazapine 15 MG Tab PO SCH (20:33)
[2016-09-06] MEDS: Metoprolol Succinate 25 MG Tab.ER PO SCH (20:34)
[2016-09-06] MEDS: risperiDONE 0.25 MG Tab PO SCH (20:34)
[2016-09-06] MEDS: [UNRECOGNIZED DRUG - OTHER] PO SCH (20:40)
[2016-09-07] MEDS: Acetaminophen 650 MG Tab.ER PO SCH ×3 (06:07→21:01)
[2016-09-07] MEDS: Gabapentin 100 MG Cap PO SCH ×3 (08:14→21:00)
[2016-09-07] MEDS: Sertraline 50 MG Tab PO SCH ×2 (08:14→21:01)
--- NOTE | 2016-09-07 09:24 | PCM.PN ---
- General Info Date of Service: 09/07/16 Admission Dx/Problem (Free Text): Admission Diagnosis/Problem Admission Diagnosis/Problem Herpes zoster, groin pain History of present illness: 89-year-old white female with a history of dementia who usually lives with her daughter was admitted on 09/04/16 through the emergency room after presenting with left groin pain. Patient had a recent history of herpes zoster about 2 weeks prior and had been on antivirals-did have a significant rash in her right groin extending around into the right flank area. Patient is pleasantly confused and at that time she denied any falls, did admit to decreased appetite. No history of fever, nausea, vomiting or diarrhea. Patient has lived with her daughter over the past 3 years. Patient has a history of dementia and daughter reports that patient has recently become progressively more weak and was going to bring her in earlier however due to to her severe pain that brought her to the emergency room department for further evaluation and treatment. Upon arrival to the ED nurses reported that it took several staff to get her out of the vehicle due to the increased pain however the pain seemed more generalized but somewhat also left lower reimbursement auditor at that traverse the abdomen. Daughter reports she cannot tolerate coleslaw, peanuts, popcorn do 2 abdominal pain and diarrhea history Patient was evaluated in the ED and then admitted for further evaluation and treatment. Working diagnosis: #1-Left lower quadrant abdominal pain-question etiology-could be mild the of diverticulitis #2-Herpes zoster-recent #3-Acute urinary tract infection #4-Acute myocardial infarction history #5-Cardiac pacemaker #6-ASCVD/CAD #7-Hypertension #8-Chronic kidney disease-stage III #9-Dementia #10-Hypothyroidism #11-Macular degeneration #8-Overactive bladder #9-GERD/esophageal reflux Patient was admitted for further evaluation and treatment. Placed on IV antibiotics-Rocephin 1 g IV every 24 hours, assistance with activities of daily living, physical therapy was consult in, patient monitored closely Patient reports today: Patient complains of [place] pain especially pkyo-lhplq-clqn her abdomen Globally confused but yet denies any chest pain or shortness of breath Eating breakfast Denied any nausea or vomiting Nurses report today: Patient very weak yet-Nurse assistant director of financial aid patient to chair and she was only able to take a couple steps with a locked of nursing assistance. Patient is not able to care or ambulate herself safely. Ate breakfast fairly well Subjective Update: Patient unable to give accurate signs or symptoms-limited historian Functional Status: Reports: pain controlled, tolerating diet, ambulating (With significant assistance of nursing staff) - Review of Systems General: Reports: Weakness, Fatigue, Malaise, Appetite (Pretty good). Denies: Fever, Chills HEENT: Reports: no symptoms Pulmonary: Reports: no symptoms Cardiovascular: Reports: No Symptoms Gastrointestinal: Reports: Abdominal pain. Denies: Decreased appetite, Diarrhea , Hematochezia, Melena, Nausea Genitourinary: Reports: no symptoms Neurological: Reports: Confusion (Globally confused-persistent), Difficulty Walking (Per nursing staff), Weakness Psychiatric: Reports: confusion - Patient Data Vitals - most recent: Last Vital Signs Temp 98.6 F 09/07/16 06:39 Pulse 64 09/07/16 06:39 Resp 16 09/07/16 06:39 BP 113/70 09/07/16 06:39 Pulse Ox 94 L 09/07/16 06:39 Weight - most recent: 152 lb I&O - last 24 hours: Intake & Output 09/06/16 09/07/16 09/07/16 22:59 06:59 14:59 Intake Total 420 150 Output Total 150 200 Balance 270 -50 Med Orders - Current: Current Medications Acetaminophen (Tylenol Arthritis Pain) 650 mg PO TID@0600,1400,2200 [facility] Last Admin: 09/07/16 06:07 Dose: 650 mg Calamine/Zinc Oxide (Calamine Lotion) 0 ml TOP TID PRN PRN Reason: itch Ceftriaxone Sodium (Rocephin) 1 gm IVPUSH Q24H [facility] Last Admin: 09/06/16 16:25 Dose: 1 gm Clopidogrel Bisulfate (Plavix) 75 mg PO BEDTIME [facility] Last Admin: 09/06/16 20:32 Dose: 75 mg Diclofenac Sodium (Voltaren 1% Gel) 0 gm TOP QID PRN PRN Reason: arthritis Gabapentin (Neurontin) 100 mg PO TID [facility] Last Admin: 09/07/16 08:14 Dose: 100 mg Levothyroxine Sodium (Levothyroxine) 112 mcg PO BEDTIME [facility] Last Admin: 09/06/16 20:31 Dose: 112 mcg Lidocaine (Lidoderm 5%) 700 mg TOP DAILY [facility] Last Admin: 09/06/16 08:44 Dose: 700 mg Melatonin (Melatonin) 6 mg PO BEDTIME [facility] Last Admin: 09/06/16 20:31 Dose: 6 mg Metoprolol Succinate (Toprol Xl) 25 mg PO BEDTIME [facility] Last Admin: 09/06/16 20:34 Dose: 25 mg Mirtazapine (Remeron) 22.5 mg PO BEDTIME [facility] Last Admin: 09/06/16 20:33 Dose: 22.5 mg Miscellaneous Information (Remove Patch) 1 ea TRDERM BEDTIME [facility] Last Admin: 09/06/16 20:34 Dose: 1 ea Morphine Sulfate (Morphine) 1 mg IVPUSH Q12H PRN PRN Reason: Pain (moderate 4-6) Last Admin: 09/04/16 18:13 Dose: 1 mg Ondansetron HCl (Zofran) 4 mg IVPUSH Q4H PRN PRN Reason: Nausea/Vomiting Oxybutynin Chloride (Oxybutynin Er) 10 mg PO BEDTIME [facility] Last Admin: 09/06/16 20:32 Dose: 10 mg Vit B12/Iod/Mg/Zn/Se /Herb#193 [Adrenoid Capsule] 1 each PO BEDTIME [facility] Last Admin: 09/06/16 20:40 Dose: Not Given Risperidone (Risperidal) 0.25 mg PO BEDTIME [facility] Last Admin: 09/06/16 20:34 Dose: 0.25 mg Sertraline HCl (Zoloft) 100 mg PO BID [facility] Last Admin: 09/07/16 08:14 Dose: 100 mg Sodium Chloride (Syrex Flush) 5 ml FLUSH Q8HR PRN PRN Reason: Keep Vein Open Last Admin: 09/03/16 23:00 Dose: 5 ml Tramadol HCl (Ultram) 50 mg PO BID@1000,1900 [facility] Last Admin: 09/06/16 18:49 Dose: 50 mg Valsartan (Diovan) 160 mg PO BEDTIME [facility] Last Admin: 09/06/16 20:29 Dose: 160 mg Discontinued Medications Acetaminophen (Tylenol) 650 mg PO TID [facility] Last Admin: 09/05/16 09:45 Dose: 650 mg Acetaminophen (Tylenol Arthritis Pain) 650 mg PO TID [facility] Atorvastatin Calcium (Lipitor) 10 mg PO BEDTIME [facility] Last Admin: 09/03/16 21:46 Dose: 10 mg Bisacodyl (Dulcolax) 10 mg RECTAL ONETIME ONE Stop: 09/05/16 11:02 Last Admin: 09/05/16 13:22 Dose: 10 mg Ceftriaxone Sodium (Rocephin) 1 gm IVPUSH ONETIME ONE Stop: 09/03/16 18:52 Last Admin: 09/03/16 22:56 Dose: 1 gm Diatrizoate Meglum/Diatrizoate Sod (Gastrografin 37%) 120 ml PO ONETIME ONE Stop: 09/06/16 15:55 Last Admin: 09/06/16 16:45 Dose: 120 ml Donepezil HCl (Aricept) 10 mg PO BEDTIME [facility] Last Admin: 09/03/16 21:46 Dose: 10 mg Sodium Chloride (Normal Saline) 1,000 mls @ 999 mls/hr IV .BOLUS ONE Stop: 09/03/16 19:18 Last Admin: 09/03/16 18:25 Dose: 999 mls/hr Sodium Chloride (Normal Saline) Confirm Administered Dose 1,000 mls @ as directed .ROUTE .STK-MED ONE Stop: 09/03/16 18:19 Last Admin: 09/03/16 18:40 Dose: Not Given Dextrose/Sodium Chloride (Dextrose 5%-1/2 Ns) 1,000 mls @ 70 mls/hr IV ASDIRECTED [facility] Last Admin: 09/05/16 04:57 Dose: 70 mls/hr Melatonin (Melatonin) 6 mg PO BEDTIME ONE Stop: 09/04/16 21:01 Last Admin: 09/03/16 22:10 Dose: 6 mg Memantine (Namenda) 5 mg PO BID [facility] Last Admin: 09/04/16 09:02 Dose: 5 mg - Exam Quality Assessment: No: supplemental oxygen General: alert, cooperative, no acute distress, other (Sitting in chair- pleasant but globally confused, moderately overweight pale, appears somewhat fragile). No: oriented HEENT: Pupils equal, Pupils reactive, EOMI, Mucous membr. moist/pink. No: Scleral icterus Neck: supple, trachea midline, no JVD, no thyromegaly. No: lymphadenopathy Lungs: Normal respiratory effort, Crackles (Crackles in posterior lung bases otherwise clear to auscultation bilaterally) Cardiovascular: Regular Rate, Regular Rhythm, Murmurs (1/6 systolic, cardiac pacemaker left upper chest) Abdomen: bowel sounds present, soft, no distension, tenderness (Slight to moderate tenderness over the mid to left lower/mid quadrant of the abdomen but no guarding or rebound). No: rigidity, rebound, guarding Extremities: no calf tenderness, edema (Trace of edema of the lower extremities) Skin: warm, dry, intact, ecchymosis (Few ecchymotic spots on her forearms), other (Pale) Neurological: no new focal deficit. No: normal speech (Speech somewhat garbled at times) Psy/Mental Status: alert, normal mood, other (Global confusion) - Problem List Review Problem List Initiated/Reviewed/Updated: Yes - Assessment Assessment:: #1-Left lower quadrant abdominal pain-question etiology-concern for component of diverticulitis #2-Herpes zoster-recent -qzfra-mncln-mxrp part seems to be doing fairly well #3-Acute urinary tract infection-clinically seems to be responding #4-Acute myocardial infarction history-stable#10-Pain control-adequate #2-Ruznimyxwyvy-snwhbkprs #6-Generalized jufkxjca-ivgfzljtsn-kdevlx adequately take care of self or ambulate yet #7-Depression/anxiety-fair contro #8-Cardiac pacemaker-chronic #9-ASCVD/CAD-stable at this time #77-Xctdtirsgkzj-pkwesn good control overall #11-Chronic kidney disease-stage III #29-Ytayrmwv-sdfzfmhctv #13-Hypothyroidism #14-Macular degeneration #15-Overactive bladder #16-GERD/esophageal reflux #17-Pain control-adequate #18-Hypercholesterolemia/hyperlipidemia #72-Jfcv-synq medication-Plavix - Plan Plan:: #1-Reviewed present treatment regimen-continue same regimen except changes as listed below #2-Add Metronidazole 500 mg IV every 8 hours #3-CBC, CMP in a.m. #4-Up in chair twice a day, ambulate with assist or times a day #5- Social work consult-may need retirement placement
[2016-09-07] MEDS: traMADol 50 MG Tab PO SCH ×2 (10:09→18:29)
[2016-09-07] MEDS: Lidocaine 5% 700 MG Patch TOP SCH (10:09)
[2016-09-07] MEDS: metroNIDAZOLE/Normal Saline 500 MG in Premix Bag 1 BAG IV SCH ×2 (10:10→18:30)
[2016-09-07] MEDS: cefTRIAXone 1 GM Vial IVPUSH SCH (15:49)
[2016-09-07] MEDS: Levothyroxine 112 MCG Tab PO SCH (20:59)
[2016-09-07] MEDS: Melatonin 3 MG Tab PO SCH (20:59)
[2016-09-07] MEDS: Clopidogrel 75 MG Tab PO SCH (21:00)
[2016-09-07] MEDS: [UNRECOGNIZED DRUG - OTHER] PO SCH (21:00)
[2016-09-07] MEDS: Mirtazapine 15 MG Tab PO SCH (21:00)
[2016-09-07] MEDS: Oxybutynin 5 MG Tab.ER PO SCH (21:00)
[2016-09-07] MEDS: Metoprolol Succinate 25 MG Tab.ER PO SCH (21:00)
[2016-09-07] MEDS: risperiDONE 0.25 MG Tab PO SCH (21:00)
[2016-09-08] MEDS ORDERED: metroNIDAZOLE/Normal Saline 100 ML ONE (01:26)
[2016-09-08] MEDS: metroNIDAZOLE/Normal Saline 500 MG in Premix Bag 1 BAG IV SCH ×3 (01:35→18:37)
[2016-09-08] MEDS: Acetaminophen 650 MG Tab.ER PO SCH ×3 (06:25→20:59)
[2016-09-08] MEDS: Lidocaine 5% 700 MG Patch TOP SCH (08:04)
[2016-09-08] MEDS: Gabapentin 100 MG Cap PO SCH ×3 (08:05→20:57)
[2016-09-08] MEDS: Sertraline 50 MG Tab PO SCH ×2 (08:05→20:57)
--- NOTE | 2016-09-08 09:21 | PCM.PN ---
- General Info Date of Service: 09/08/16 Admission Dx/Problem (Free Text): Admission Diagnosis/Problem Admission Diagnosis/Problem Herpes zoster, groin pain History of present illness: 89-year-old white female with a history of dementia who usually lives with her daughter was admitted on 09/04/16 through the emergency room after presenting with left groin pain. Patient had a recent history of herpes zoster about 2 weeks prior and had been on antivirals-did have a significant rash in her right groin extending around into the right flank area. Patient is pleasantly confused and at that time she denied any falls, did admit to decreased appetite. No history of fever, nausea, vomiting or diarrhea. Patient has lived with her daughter over the past 3 years. Patient has a history of dementia and daughter reports that patient has recently become progressively more weak and was going to bring her in earlier however due to to her severe pain that brought her to the emergency room department for further evaluation and treatment. Upon arrival to the ED nurses reported that it took several staff to get her out of the vehicle due to the increased pain however the pain seemed more generalized but somewhat also left lower coding auditor at that traverse the abdomen. Daughter reports she cannot tolerate coleslaw, peanuts, popcorn do 2 abdominal pain and diarrhea history Patient was evaluated in the ED and then admitted for further evaluation and treatment. Working diagnosis: #1-Left lower quadrant abdominal pain-question etiology-could be mild the of diverticulitis #2-Herpes zoster-recent #3-Acute urinary tract infection #4-Acute myocardial infarction history #5-Cardiac pacemaker #6-ASCVD/CAD #7-Hypertension #8-Chronic kidney disease-stage III #9-Dementia #10-Hypothyroidism #11-Macular degeneration #8-Overactive bladder #9-GERD/esophageal reflux Patient was admitted for further evaluation and treatment. Placed on IV antibiotics-Rocephin 1 g IV every 24 hours, assistance with activities of daily living, physical therapy was consult in, patient monitored closely On 09/07/16-still having significant left lower quadrant pain-concern for diverticulitis therefore Flagyl IV was added-500 mg IV every 8 hours Seems to be responding to Rocephin and Flagyl Patient reports today: Patient sitting up in the chair-limited historian secondary to her dementia Complaints of bilateral upper thigh pain and some epigastric discomfort Denied any chest pain or shortness of breath Nurses report today: Nurses report she is doing much better today Stronger but still takes 2 nurses to ambulate but was able to walk with 2 nurses from the bathroom back to the bed No abdominal pain even on deep palpation Not eating as well this morning-less than 10% of her breakfast Subjective Update: Patient unable to give accurate signs or symptoms-limited historian Functional Status: Reports: pain controlled, tolerating diet (But not eating as well today), ambulating (With assist of 2 but doing somewhat better), urinating - Review of Systems General: Reports: Weakness (Improving), Fatigue, Malaise, Appetite (Little more decreased today). Denies: Fever, Chills HEENT: Reports: no symptoms Pulmonary: Reports: no symptoms Cardiovascular: Reports: No Symptoms Gastrointestinal: Reports: Abdominal pain (Little epigastric discomfort but not severe), Decreased appetite. Denies: Nausea, Vomiting Genitourinary: Reports: no symptoms Musculoskeletal: Reports: other (Bilateral leg/thigh pain) Neurological: Reports: Confusion, Other (No new acute motor or sensory deficits appreciated today) Psychiatric: Reports: confusion - Patient Data Vitals - most recent: Last Vital Signs Temp 96.6 F 09/08/16 06:49 Pulse 66 09/08/16 06:49 Resp 16 09/08/16 06:49 BP 146/76 H 09/08/16 06:49 Pulse Ox 96 09/08/16 06:49 Weight - most recent: 152 lb I&O - last 24 hours: Intake & Output 09/07/16 09/08/16 09/08/16 22:59 06:59 14:59 Intake Total 330 300 Output Total 300 300 Balance 30 0 Lab Results last 24 hrs: Laboratory Results - last 24 hr 09/08/16 09/08/16 Range/Units 06:55 06:55 WBC 7.8 (5.0-10.0) 10^3/uL RBC 3.69 L (3.80-5.50) 10^6/uL Hgb 11.6 L (12.0-16.0) g/dL Hct 33.5 L (37.0-47.0) % MCV 90.8 (82.0-92.0) fL MCH 31.4 H (27.0-31.0) pg MCHC 34.6 (32.0-36.0) g/dL RDW 16.4 H (11.5-14.5) % Plt Count 157 (150-300) 10^3/uL MPV 6.3 L (7.4-10.4) fL Neut % (Auto) 50.2 (50.0-70.0) % Lymph % (Auto) 38.7 (20.0-40.0) % [place] % (Auto) 6.7 (2.0-8.0) % Eos % (Auto) 3.6 H (1.0-3.0) % Baso % (Auto) 0.8 (0.0-1.0) % Neut # 3.9 (2.5-7.0) 10^3/uL Lymph # 3.0 (1.0-4.0) 10^3/uL [place] # 0.5 (0.1-0.8) 10^3/uL Eos # 0.3 (0.1-0.3) 10^3/uL Baso # 0.1 (0.0-0.1) 10^3/uL Sodium 136 (136-145) mmol/L Potassium 3.9 (3.3-5.3) mmol/L Chloride 108 (98-115) mmol/L Carbon Dioxide 24.3 (21.0-32.0) mmol/L BUN 26 H (6-25) mg/dL Creatinine 1.12 (0.51-1.17) mg/dL Est Cr Clr Drug Dosing 26.93 mL/min Estimated GFR (MDRD) 46 mL/min Glucose 108 (70-110) mg/dL Calcium 8.9 (8.7-10.3) mg/dL Total Bilirubin 0.2 (0.2-1.0) mg/dL AST 30 (15-37) U/L ALT 25 (12-78) U/L Alkaline Phosphatase 126 H (46-116) IU/L Total Protein 6.0 L (6.4-8.2) g/dL Albumin 2.52 L (3.00-4.80) g/dL Med Orders - Current: Current Medications Acetaminophen (Tylenol Arthritis Pain) 650 mg PO TID@0600,1400,2200 [facility] Last Admin: 09/08/16 06:25 Dose: 650 mg Calamine/Zinc Oxide (Calamine Lotion) 0 ml TOP TID PRN PRN Reason: itch Ceftriaxone Sodium (Rocephin) 1 gm IVPUSH Q24H [facility] Last Admin: 09/07/16 15:49 Dose: 1 gm Clopidogrel Bisulfate (Plavix) 75 mg PO BEDTIME [facility] Last Admin: 09/07/16 21:00 Dose: 75 mg Diclofenac Sodium (Voltaren 1% Gel) 0 gm TOP QID PRN PRN Reason: arthritis Gabapentin (Neurontin) 100 mg PO TID [facility] Last Admin: 09/08/16 08:05 Dose: 100 mg Metronidazole 500 mg/ Premix 100 mls @ 100 mls/hr IV Q8H [facility] Last Admin: 09/08/16 01:35 Dose: 100 mls/hr Levothyroxine Sodium (Levothyroxine) 112 mcg PO BEDTIME [facility] Last Admin: 09/07/16 20:59 Dose: 112 mcg Lidocaine (Lidoderm 5%) 700 mg TOP DAILY [facility] Last Admin: 09/08/16 08:04 Dose: 700 mg Melatonin (Melatonin) 6 mg PO BEDTIME [facility] Last Admin: 09/07/16 20:59 Dose: 6 mg Metoprolol Succinate (Toprol Xl) 25 mg PO BEDTIME [facility] Last Admin: 09/07/16 21:00 Dose: 25 mg Mirtazapine (Remeron) 22.5 mg PO BEDTIME [facility] Last Admin: 09/07/16 21:00 Dose: 22.5 mg Miscellaneous Information (Remove Patch) 1 ea TRDERM BEDTIME [facility] Last Admin: 09/07/16 21:01 Dose: 1 ea Morphine Sulfate (Morphine) 1 mg IVPUSH Q12H PRN PRN Reason: Pain (moderate 4-6) Last Admin: 09/04/16 18:13 Dose: 1 mg Ondansetron HCl (Zofran) 4 mg IVPUSH Q4H PRN PRN Reason: Nausea/Vomiting Oxybutynin Chloride (Oxybutynin Er) 10 mg PO BEDTIME [facility] Last Admin: 09/07/16 21:00 Dose: 10 mg Vit B12/Iod/Mg/Zn/Se /Herb#193 [Adrenoid Capsule] 1 each PO BEDTIME [facility] Last Admin: 09/07/16 21:00 Dose: Not Given Risperidone (Risperidal) 0.25 mg PO BEDTIME [facility] Last Admin: 09/07/16 21:00 Dose: 0.25 mg Sertraline HCl (Zoloft) 100 mg PO BID [facility] Last Admin: 09/08/16 08:05 Dose: 100 mg Sodium Chloride (Syrex Flush) 5 ml FLUSH Q8HR PRN PRN Reason: Keep Vein Open Last Admin: 09/03/16 23:00 Dose: 5 ml Tramadol HCl (Ultram) 50 mg PO BID@1000,1900 [facility] Last Admin: 09/07/16 18:29 Dose: 50 mg Valsartan (Diovan) 160 mg PO BEDTIME [facility] Last Admin: 09/07/16 20:59 Dose: 160 mg Discontinued Medications Acetaminophen (Tylenol) 650 mg PO TID [facility] Last Admin: 09/05/16 09:45 Dose: 650 mg Acetaminophen (Tylenol Arthritis Pain) 650 mg PO TID [facility] Atorvastatin Calcium (Lipitor) 10 mg PO BEDTIME [facility] Last Admin: 09/03/16 21:46 Dose: 10 mg Bisacodyl (Dulcolax) 10 mg RECTAL ONETIME ONE Stop: 09/05/16 11:02 Last Admin: 09/05/16 13:22 Dose: 10 mg Ceftriaxone Sodium (Rocephin) 1 gm IVPUSH ONETIME ONE Stop: 09/03/16 18:52 Last Admin: 09/03/16 22:56 Dose: 1 gm Diatrizoate Meglum/Diatrizoate Sod (Gastrografin 37%) 120 ml PO ONETIME ONE Stop: 09/06/16 15:55 Last Admin: 09/06/16 16:45 Dose: 120 ml Donepezil HCl (Aricept) 10 mg PO BEDTIME [facility] Last Admin: 09/03/16 21:46 Dose: 10 mg Sodium Chloride (Normal Saline) 1,000 mls @ 999 mls/hr IV .BOLUS ONE Stop: 09/03/16 19:18 Last Admin: 09/03/16 18:25 Dose: 999 mls/hr Sodium Chloride (Normal Saline) Confirm Administered Dose 1,000 mls @ as directed .ROUTE .STK-MED ONE Stop: 09/03/16 18:19 Last Admin: 09/03/16 18:40 Dose: Not Given Dextrose/Sodium Chloride (Dextrose 5%-1/2 Ns) 1,000 mls @ 70 mls/hr IV ASDIRECTED [facility] Last Admin: 09/05/16 04:57 Dose: 70 mls/hr Metronidazole (Flagyl 500 Mg In Ns 100 Ml) Confirm Administered Dose 100 mls @ as directed .ROUTE .STK-MED ONE Stop: 09/08/16 01:27 Last Admin: 09/08/16 01:32 Dose: Not Given Melatonin (Melatonin) 6 mg PO BEDTIME ONE Stop: 09/04/16 21:01 Last Admin: 09/03/16 22:10 Dose: 6 mg Memantine (Namenda) 5 mg PO BID [facility] Last Admin: 09/04/16 09:02 Dose: 5 mg - Exam General: alert, cooperative, no acute distress, other (Patient sitting in the chair-alert, global confusion persists). No: oriented HEENT: Pupils equal, Pupils reactive, EOMI, Mucous membr. moist/pink. No: Scleral icterus Neck: supple, trachea midline, no JVD, no thyromegaly. No: lymphadenopathy, thyromegaly Lungs: Decreased breath sounds, Crackles (bases) Cardiovascular: Regular Rate, Regular Rhythm, Murmurs (1/6 systolic) Abdomen: bowel sounds present, soft, no tenderness, no distension, other (No tenderness to palpation today much better). 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 [CONS] Routine 09/07/16 10:00 metroNIDAZOLE/Normal Saline [Flagyl 500 MG in NS 100 ML] 500 mg Premix Bag 1 bag IV Q8H - Assessment Assessment:: #1-Left lower quadrant abdominal pain-question etiology-a component of acute diverticulitis-clinically improving with IV antibiotics #2-Herpes zoster-recent -wksyj-uqgnv-zmbox fairly well #3-Acute urinary tract infection-improving #4-Acute myocardial infarction history-stable #5-Pain control-adequate #7-Lvzgcw-igkvocndsh since admission-suspect more dilutional-no sign of obvious bleeding #5-Gfgrkjqkjwwf-ygxgfarau #8-Generalized ekscefmi-jhzowphsvv-lzckgzhbl improving #9-Depression/anxiety-fair control #10-Cardiac pacemaker-chronic #11-ASCVD/CAD-stable #21-Cquvqmrdutvu-pmqwbq good control overall #13-Chronic kidney disease-stage III #95-Lxrvaeyv-azlbydnjab #15-Hypothyroidism #16-Macular degeneration #17-Overactive bladder #18-GERD/esophageal reflux #19-Hypercholesterolemia/hyperlipidemia #14-Hsyg-qcxw medication-Plavix - Plan Plan:: #1-Reviewed present treatment regimen-continue same regimen except changes as listed below #2- Continue IV Rocephin and IV Flagyl-seems to be responding to it #3-CBC, BMP, UA in a.m. #4-continue physical therapy #5- Social work consult-may need longterm placement #6-continue up in the chair twice a day of work on ambulation with assist or times a day
[2016-09-08] MEDS: traMADol 50 MG Tab PO SCH ×2 (09:49→20:54)
[2016-09-08] MEDS: cefTRIAXone 1 GM Vial IVPUSH SCH (16:10)
[2016-09-08] MEDS: Levothyroxine 112 MCG Tab PO SCH (20:55)
[2016-09-08] MEDS: Metoprolol Succinate 25 MG Tab.ER PO SCH (20:56)
[2016-09-08] MEDS: risperiDONE 0.25 MG Tab PO SCH (20:56)
[2016-09-08] MEDS: Clopidogrel 75 MG Tab PO SCH (20:56)
[2016-09-08] MEDS: Melatonin 3 MG Tab PO SCH (20:57)
[2016-09-08] MEDS: Oxybutynin 5 MG Tab.ER PO SCH (20:57)
[2016-09-08] MEDS: [UNRECOGNIZED DRUG - OTHER] PO SCH (20:58)
[2016-09-08] MEDS: Mirtazapine 15 MG Tab PO SCH (20:58)
[2016-09-09] MEDS: metroNIDAZOLE/Normal Saline 500 MG in Premix Bag 1 BAG IV SCH ×2 (01:56→10:00)
[2016-09-09] MEDS: Acetaminophen 650 MG Tab.ER PO SCH (05:46)
[2016-09-09 06:34] VITALS: BP 120/71
[2016-09-09] MEDS: Lidocaine 5% 700 MG Patch TOP SCH (08:21)
[2016-09-09] MEDS: Gabapentin 100 MG Cap PO SCH (08:21)
[2016-09-09] MEDS: Sertraline 50 MG Tab PO SCH (08:21)
[2016-09-09] MEDS: traMADol 50 MG Tab PO SCH (10:00)
--- NOTE | 2016-09-09 10:42 | PCM.DCSUM1 ---
Discharge Summary - Hospital Course Brief History: This 89-year-old elderly lady initially came was admitted through the ED and lives with her daughter was admitted on 09/04/16 for severe pain in her left groin area to the point that it took multiple staff to get her out of car upon presentation. Patient had a recent history of herpes zoster about 2 weeks prior to this admssion and had been on antivirals-did have a significant rash in her right groin extending around into the right flank area however this was not main soure of her pain. She denied falls but appeared to have left hip/back and abd pain however due to her dementia it was difficult early on in determinin exact etiology. She was basically admitted for pain control and futher workup. - Discharge Data Discharge Date: 09/09/16 Discharge Disposition: DC/Tfer W/I Hosp To Swing Condition: Fair - Patient Summary/Data Complications: No complications noted. Consults: Consultations 09/07/16 09:46 Consult to Panel Machine Operator [CONS] Routine Hospital Course: Hospital course went quite well with improved pain control with added pharmacological interventions. She was placed on abx for suspected diverticulitis although CT did not determine active infection. She was treated for UTI; she was placed on Ultram which did seem to ease her pain, scheduled tylenol, Diclofenac sodium, lidocaine patch however she did require small doses of morphine early on admission. Patient was admitted for further evaluation and treatment. Placed on IV antibiotics-Rocephin 1 g IV every 24 hours, assistance with activities of daily living, physical therapy was consulted and due to very limited abilities and the desire to have patient return back to her daughters' care she would benefit from swingbed placement. - Discharge Plan Home Medications: Home Meds Clopidogrel Bisulfate [Clopidogrel] 75 mg PO BEDTIME 08/18/16 [History] Donepezil HCl [Donepezil HCl] 10 mg PO BEDTIME 08/18/16 [History] FA/Lycopene/Lut/MV,Ca,Iron,Min [Centrum] 1 tab PO DAILY 08/18/16 [History] Levothyroxine Sodium [Synthroid] 112 mcg PO BEDTIME 08/18/16 [History] Melatonin 5 mg PO BEDTIME 08/18/16 [History] Memantine HCl [Namenda] 5 mg PO BID 08/18/16 [History] Metoprolol Succinate [Toprol XL] 25 mg PO BEDTIME 08/18/16 [History] Mirtazapine [Remeron] 22.5 mg PO BEDTIME 08/18/16 [History] Oxybutynin Chloride [Ditropan Xl] 10 mg PO BEDTIME 08/18/16 [History] Sertraline [Zoloft] 100 mg PO BID 08/18/16 [History] Valsartan [Diovan] 160 mg PO BEDTIME 08/18/16 [History] Vit B12/Iod/Mg/Zn/Se/Herb#193 [Adrenoid Capsule] 1 tab PO BEDTIME 08/18/16 [ History] atorvaSTATin [Lipitor] 10 mg PO BEDTIME 08/18/16 [History] risperiDONE [risperiDONE] 0.25 mg PO BEDTIME 08/18/16 [History] - Discharge Summary/Plan Comment DC Time >30 min.: Yes (90 minutes total on dishcharge process. ) Discharge Summary/Plan Comment: Final Diagnosis: Diverticulosis; Herpes zoster- Acute urinary tract infection Degenerative Disk Disease; severe L5-S1 Generalized weakness; Anemia Depression/anxiety Cardiac pacemaker-chronic ASCVD/CAD Hypertension Chronic kidney disease-stage III Dementia Hypothyroidism Macular degeneration OAB; GERD Hypercholesterolemia/hyperlipidemia - Patient Data Vitals - Most Recent: Last Vital Signs Temp 98.2 F 09/09/16 06:33 Pulse 64 09/09/16 06:33 Resp 20 09/09/16 06:33 BP 120/71 09/09/16 06:33 Pulse Ox 94 L 09/09/16 06:33 Weight - Most Recent: 152 lb I&O - Last 24 hours: Intake & Output 09/08/16 09/09/16 09/09/16 22:59 06:59 14:59 Intake Total 410 300 Output Total 300 Balance 110 300 Lab Results - Last 24 hrs: Laboratory Results - last 24 hr 09/09/16 09/09/16 09/09/16 Range/Units 07:05 07:05 09:50 WBC 7.7 (5.0-10.0) 10^3/uL RBC 3.80 (3.80-5.50) 10^6/uL Hgb 11.8 L (12.0-16.0) g/dL Hct 34.4 L (37.0-47.0) % MCV 90.6 (82.0-92.0) fL MCH 31.2 H (27.0-31.0) pg MCHC 34.4 (32.0-36.0) g/dL RDW 16.8 H (11.5-14.5) % Plt Count 168 (150-300) 10^3/uL MPV 6.4 L (7.4-10.4) fL Neut % (Auto) 61.1 (50.0-70.0) % Lymph % (Auto) 26.7 (20.0-40.0) % [place] % (Auto) 7.2 (2.0-8.0) % Eos % (Auto) 4.2 H (1.0-3.0) % Baso % (Auto) 0.8 (0.0-1.0) % Neut # 4.6 (2.5-7.0) 10^3/uL Lymph # 2.1 (1.0-4.0) 10^3/uL [place] # 0.6 (0.1-0.8) 10^3/uL Eos # 0.3 (0.1-0.3) 10^3/uL Baso # 0.1 (0.0-0.1) 10^3/uL Sodium 142 (136-145) mmol/L Potassium 4.0 (3.3-5.3) mmol/L Chloride 107 (98-115) mmol/L Carbon Dioxide 25.0 (21.0-32.0) mmol/L BUN 25 (6-25) mg/dL Creatinine 1.02 (0.51-1.17) mg/dL Est Cr Clr Drug Dosing 29.57 mL/min Estimated GFR (MDRD) 51 mL/min Glucose 118 H (70-110) mg/dL Calcium 8.9 (8.7-10.3) mg/dL Specimen Type Urincath Urine Color Yellow (YELLOW) Urine Appearance Clear (CLEAR) Urine pH 5.0 (5.0-9.0) Ur Specific [place] 1.015 (1.005-1.030) Urine Protein 30 H (NEGATIVE) mg/dL Urine Glucose (UA) Negative (NEGATIVE) mg/dL Urine Ketones Negative (NEGATIVE) mg/dL Urine Occult Blood Negative (NEGATIVE) Urine Nitrite Negative (NEGATIVE) Urine Bilirubin Negative (NEGATIVE) Urine Urobilinogen 0.2 (0.2-1.0) E.U./dL Ur Leukocyte Esterase Small H (NEGATIVE) Urine RBC 0-5 /HPF Urine WBC 10-20 H /HPF Ur Epithelial Cells Moderate H /LPF Urine Bacteria Few (NONE TO FEW) /HPF Med Orders - Current: Current Medications Acetaminophen (Tylenol Arthritis Pain) 650 mg PO TID@0600,1400,2200 [facility] Last Admin: 09/09/16 05:46 Dose: 650 mg Calamine/Zinc Oxide (Calamine Lotion) 0 ml TOP TID PRN PRN Reason: itch Last Admin: 09/08/16 22:05 Dose: 1 applic Ceftriaxone Sodium (Rocephin) 1 gm IVPUSH Q24H [facility] Last Admin: 09/08/16 16:10 Dose: 1 gm Clopidogrel Bisulfate (Plavix) 75 mg PO BEDTIME [facility] Last Admin: 09/08/16 20:56 Dose: 75 mg Diclofenac Sodium (Voltaren 1% Gel) 0 gm TOP QID PRN PRN Reason: arthritis Gabapentin (Neurontin) 100 mg PO TID [facility] Last Admin: 09/09/16 08:21 Dose: 100 mg Metronidazole 500 mg/ Premix 100 mls @ 100 mls/hr IV Q8H [facility] Last Admin: 09/09/16 10:00 Dose: 100 mls/hr Levothyroxine Sodium (Levothyroxine) 112 mcg PO BEDTIME [facility] Last Admin: 09/08/16 20:55 Dose: 112 mcg Lidocaine (Lidoderm 5%) 700 mg TOP DAILY [facility] Last Admin: 09/09/16 08:21 Dose: 700 mg Melatonin (Melatonin) 6 mg PO BEDTIME [facility] Last Admin: 09/08/16 20:57 Dose: 6 mg Metoprolol Succinate (Toprol Xl) 25 mg PO BEDTIME [facility] Last Admin: 09/08/16 20:56 Dose: 25 mg Mirtazapine (Remeron) 22.5 mg PO BEDTIME [facility] Last Admin: 09/08/16 20:58 Dose: 22.5 mg Miscellaneous Information (Remove Patch) 1 ea TRDERM BEDTIME [facility] Last Admin: 09/08/16 20:59 Dose: 1 ea Morphine Sulfate (Morphine) 1 mg IVPUSH Q12H PRN PRN Reason: Pain (moderate 4-6) Last Admin: 09/04/16 18:13 Dose: 1 mg Ondansetron HCl (Zofran) 4 mg IVPUSH Q4H PRN PRN Reason: Nausea/Vomiting Oxybutynin Chloride (Oxybutynin Er) 10 mg PO BEDTIME [facility] Last Admin: 09/08/16 20:57 Dose: 10 mg Risperidone (Risperidal) 0.25 mg PO BEDTIME [facility] Last Admin: 09/08/16 20:56 Dose: 0.25 mg Sertraline HCl (Zoloft) 100 mg PO BID [facility] Last Admin: 09/09/16 08:21 Dose: 100 mg Sodium Chloride (Syrex Flush) 5 ml FLUSH Q8HR PRN PRN Reason: Keep Vein Open Last Admin: 09/03/16 23:00 Dose: 5 ml Tramadol HCl (Ultram) 50 mg PO BID@1000,1900 [facility] Last Admin: 09/09/16 10:00 Dose: 50 mg Valsartan (Diovan) 160 mg PO BEDTIME [facility] Last Admin: 09/08/16 20:55 Dose: 160 mg Discontinued Medications Acetaminophen (Tylenol) 650 mg PO TID [facility] Last Admin: 09/05/16 09:45 Dose: 650 mg Acetaminophen (Tylenol Arthritis Pain) 650 mg PO TID [facility] Atorvastatin Calcium (Lipitor) 10 mg PO BEDTIME [facility] Last Admin: 09/03/16 21:46 Dose: 10 mg Bisacodyl (Dulcolax) 10 mg RECTAL ONETIME ONE Stop: 09/05/16 11:02 Last Admin: 09/05/16 13:22 Dose: 10 mg Ceftriaxone Sodium (Rocephin) 1 gm IVPUSH ONETIME ONE Stop: 09/03/16 18:52 Last Admin: 09/03/16 22:56 Dose: 1 gm Diatrizoate Meglum/Diatrizoate Sod (Gastrografin 37%) 120 ml PO ONETIME ONE Stop: 09/06/16 15:55 Last Admin: 09/06/16 16:45 Dose: 120 ml Donepezil HCl (Aricept) 10 mg PO BEDTIME [facility] Last Admin: 09/03/16 21:46 Dose: 10 mg Sodium Chloride (Normal Saline) 1,000 mls @ 999 mls/hr IV .BOLUS ONE Stop: 09/03/16 19:18 Last Admin: 09/03/16 18:25 Dose: 999 mls/hr Sodium Chloride (Normal Saline) Confirm Administered Dose 1,000 mls @ as directed .ROUTE .STK-MED ONE Stop: 09/03/16 18:19 Last Admin: 09/03/16 18:40 Dose: Not Given Dextrose/Sodium Chloride (Dextrose 5%-1/2 Ns) 1,000 mls @ 70 mls/hr IV ASDIRECTED [facility] Last Admin: 09/05/16 04:57 Dose: 70 mls/hr Metronidazole (Flagyl 500 Mg In Ns 100 Ml) Confirm Administered Dose 100 mls @ as directed .ROUTE .STK-MED ONE Stop: 09/08/16 01:27 Last Admin: 09/08/16 01:32 Dose: Not Given Melatonin (Melatonin) 6 mg PO BEDTIME ONE Stop: 09/04/16 21:01 Last Admin: 09/03/16 22:10 Dose: 6 mg Memantine (Namenda) 5 mg PO BID [facility] Last Admin: 09/04/16 09:02 Dose: 5 mg Vit B12/Iod/Mg/Zn/Se /Herb#193 [Adrenoid Capsule] 1 each PO BEDTIME [facility] Last Admin: 09/08/16 20:58 Dose: Not Given *Q Meaningful Use (DIS) - VTE *Q VTE Criteria *Q: - Stroke *Q Stroke Criteria *Q: - AMI *Q AMI Criteria *Q:
[2016-09-09] MEDS ORDERED: metroNIDAZOLE/Normal Saline 100 ML IV SCH (16:00)
== END 2016-09-09 10:24 | disposition swing bed (61) | DRG 392 ==
LOC: KA.ED 17:09 → KA.MS 18:57 → INTOOBSV 09-05 16:22 → OBSVTOIN 09-05 16:22 → UNDODISIN 09-09 10:24
PROVIDERS: ADMIT Physician Assistant Surgical; ATTEND Family Medicine
DX: K57.90 Diverticulosis of intestine, part unspecified, without perforation or abscess without bleeding (principal); R59.0 Localized enlarged lymph nodes; N39.0 Urinary tract infection, site not specified; B02.9 Zoster without complications; M51.37 Other intervertebral disc degeneration, lumbosacral region; D64.9 Anemia, unspecified; F41.8 Other specified anxiety disorders; Z95.0 Presence of cardiac pacemaker; I12.9 Hypertensive chronic kidney disease with stage 1 through stage 4 chronic kidney disease, or unspecified chronic kidney disease; I25.10 Atherosclerotic heart disease of native coronary artery without angina pectoris; N18.3 Chronic kidney disease, stage 3 (moderate); F03.90 Unspecified dementia, unspecified severity, without behavioral disturbance, psychotic disturbance, mood disturbance, and anxiety; E03.9 Hypothyroidism, unspecified; H35.30 Unspecified macular degeneration; K21.9 Gastro-esophageal reflux disease without esophagitis; E78.5 Hyperlipidemia, unspecified; I25.2 Old myocardial infarction; N32.81 Overactive bladder
CPT/HCPCS: 36415 ×2; 72100; 73501; 80053; 81001; 85025 ×2; 85651; 87086; 96361 ×3; 96374; 96375; 96376; 99284 ×2; A9270 ×34; G0378; J0696 ×3; J2270 ×2; J7030; J7042 ×2; 74177; 80048; 96360; 97163-GP; Q9963

== ENCOUNTER 2016-09-09 09:58 | Inpatient (IN) | payer MEDICARE, OTHER ==
[2016-09-09] MEDS ORDERED: Ondansetron 4 MG/2 ML SDV IVPUSH PRN (10:26)
[2016-09-09] MEDS ORDERED: Calamine/Zinc Oxide Lotion 118 ML Bottle TOP PRN (10:26)
[2016-09-09] MEDS ORDERED: Morphine 2 MG/ML Syringe IVPUSH PRN (10:26)
[2016-09-09] MEDS ORDERED: Diclofenac Sodium 1% Gel 100 GM Tube TOP PRN (10:26)
--- NOTE | 2016-09-09 12:56 | HP ---
CHIEF COMPLAINT: Nurses report some lower back pain and lower hip pain when held a dose of Ultram and the patient does complain of some mild left lower abdominal quadrant pain. HISTORY OF PRESENT ILLNESS: This 89-year-old female with a history of dementia, usually lives with her daughter. She was initially admitted into acute care status on 09/04/2016 through the emergency department. She came through with quite a bit of groin pain, left lower abdominal pain, so severe that took multiple staff members to get her out of the vehicle. We did note that she had a quite extensive herpes zoster rash on her right flank area. She has been treated with antivirals about 2 weeks prior; however, this did not seem to bother her at that time. The patient does have dementia. She is pleasantly confused. She is a very poor historian, although she will tell you that she did not have any falls. Early on admission, she did not have a very good appetite. The family said she did not have any history of fever, nausea, vomiting, or diarrhea. She was initially admitted through the emergency department with a working diagnosis of left lower lobe abdominal quadrant. We question the etiology at that time, herpes zoster, acute urinary tract infection with left hip pain and then eventually she started complaining of lower back pain. PAST MEDICAL HISTORY: Cardiac pacemaker, acute myocardial infarction history, coronary artery disease, hypertension, chronic kidney disease stage 3, dementia, hypothyroidism, macular degeneration, overactive bladder, GERD, history of herpes zoster which is more recent past 2 or 3 weeks. SOCIAL HISTORY: The patient does live with her daughter. No smoking or history of alcohol. ALLERGIES: Penicillin G and venom via the honey bee. REVIEW OF SYSTEMS: Very limited due to altered mental status and dementia. However, she will point to her left lower lobe abdominal tenderness and periodically she will complain of back pain. PHYSICAL EXAMINATION: The patient is 5 feet 2 inches. She is 152 pounds. She is a full code. GENERAL: She is alert and cooperative. She is oriented to who she is, but she does not know where she is at. She is "pleasantly confused." HEENT: Her hearing is intact. Mucosa moist and pink. LUNGS: Normal respiratory effort; however, hypoventilatory. Lungs are clear to auscultation. CARDIOVASCULAR: Regular rate and rhythm. It is paced. ABDOMEN: Bowel tones are low. No distention. Negative McBurney point. Negative Henderson sign; however, facial grimaces on palpation of her left lower lobe. No mass felt. EXTREMITIES: No calf edema. There is no swelling noted. SKIN: Warm, dry, and intact. Appears pallor. She does have some bruising on her extremities. NEUROLOGIC: No new focal deficit. However, she is only alert to who she is. Mental Status: Alert and normal mood. Some global confusion present on admission. Ambulatory status needs significant help with walker. DIAGNOSTIC: CT of the abdomen dated, 09/06/2016 does not show any acute pathology. Lumbar series shows multilevel lumbar degenerative disk disease, severe L5 through S1; however, no acute process. Radiographs of pelvis, AP pelvis with frog leg left hip shows no acute process other than mild degenerative changes of the hips and SI joint. LABORATORY DATA: White count 7.7, hemoglobin 11.8, hematocrit 34.4, RDW 16.8, percentage neutrophils 61. Sodium 142, potassium 4.0, BUN 25, creatinine 1.02, glucose 118, calcium 8.9. Albumin 2.52, total protein 6.0, alkaline phosphatase 126. UA clear, yellow, specific gravity of 1.015, proteins are high, small amount of leukocyte esterase, moderate wbc's, few bacteria. Microbiology report, no growth after two days. IMPRESSION/PLAN: 1. Left lower lobe abdominal quadrant pain appears likely diverticulitis, although inconsistent with radiograph reports; however, improving on antibiotic therapy. 2. Degenerative disk disease, L5-S1. Variable control of pain. Continue on Tylenol scheduled, Lidoderm, Voltaren gel, and limited Ultram. 3. Herpes zoster, recent. Right side doing well with calamine lotion. I did place her on gabapentin 100 mg p.o. t.i.d. 4. Urinary tract infection. This seems to be improving clinically. She is on antibiotics. 5. Anemia. This is improving. Normocytic normochromic; however, does have some cell size variability, is likely chronic. We will hold off on any studies at this time. 6. Weakness, quite profound. She is working with physical therapy right now. She will need quite a bit of physical therapy in order for her to return back to near baseline before she goes home. 7. History of acute myocardial infarction. 8. Cardiac pacemaker, this is stable, regular rate and rhythm. 9. Coronary artery disease. She is on dual antiplatelet therapy. 10.Hypertension. Her blood pressure is stable. She is on ARB right now. She is on metoprolol succinate 25 mg p.o. at bedtime. 11.Depression, controlled with Zoloft. 12.Chronic kidney disease. This appears to be stable. GFR around 51 with creatinine clearance around 30, stage 3. 13.Dementia. This is quite profound, persistent; however, stable. 14.Hypothyroidism. She is on thyroid replacement therapy. 15.Macular degeneration. 16.Gastroesophageal reflux disease with reflux. 17.Hypercholesterolemia, hyperlipidemia. OVERALL PLAN: We will place her in swing bed status today to receive physical therapy. At this time, we will continue with IV Rocephin and Flagyl as she seems to be responding to this with less abdominal pain today, although we do recommend jail placement. The family is strongly desiring that she return back to live with them. We will have her up in a chair. Continue work on ambulation. We will hold Ultram during the daytime as this is causing her to be more confused and sedated. /[id number]/MODL
[2016-09-09] MEDS: Gabapentin 100 MG Cap PO SCH ×2 (14:32→20:09)
[2016-09-09] MEDS: Acetaminophen 650 MG Tab.ER PO SCH ×2 (14:35→22:32)
[2016-09-09] MEDS: cefTRIAXone 1 GM Vial IVPUSH SCH (16:09)
[2016-09-09] MEDS: metroNIDAZOLE/Normal Saline 100 ML IV SCH ×2 (16:16→22:33)
[2016-09-09] MEDS: Sodium Chloride 0.9% 5 ML Syringe FLUSH PRN (16:25)
[2016-09-09] MEDS ORDERED: traMADol 50 MG Tab PO SCH ×2 (19:00→21:00)
[2016-09-09] MEDS: Clopidogrel 75 MG Tab PO SCH (20:04)
[2016-09-09] MEDS: risperiDONE 0.25 MG Tab PO SCH (20:04)
[2016-09-09] MEDS: Metoprolol Succinate 25 MG Tab.ER PO SCH (20:04)
[2016-09-09] MEDS: Oxybutynin 5 MG Tab.ER PO SCH (20:05)
[2016-09-09] MEDS: Melatonin 3 MG Tab PO SCH (20:05)
[2016-09-09] MEDS: Mirtazapine 15 MG Tab PO SCH (20:05)
[2016-09-09] MEDS: Levothyroxine 112 MCG Tab PO SCH (20:05)
[2016-09-09] MEDS: Sertraline 50 MG Tab PO SCH (20:06)
[2016-09-09] MEDS ORDERED: Magnesium Hydroxide 400 MG/5 ML Susp 30 ML Cup PO PRN (22:02)
[2016-09-10] MEDS: Acetaminophen 650 MG Tab.ER PO SCH ×3 (05:59→22:13)
[2016-09-10] MEDS: metroNIDAZOLE/Normal Saline 100 ML IV SCH ×3 (05:59→22:17)
[2016-09-10] MEDS: Gabapentin 100 MG Cap PO SCH ×3 (08:09→20:24)
[2016-09-10] MEDS: Lidocaine 5% 700 MG Patch TOP SCH (08:09)
[2016-09-10] MEDS: Sertraline 50 MG Tab PO SCH ×2 (08:09→20:18)
[2016-09-10] MEDS ORDERED: Magnesium Hydroxide 400 MG/5 ML Susp 30 ML Cup PO ONE (12:09)
[2016-09-10] MEDS: cefTRIAXone 1 GM Vial IVPUSH SCH (17:08)
[2016-09-10] MEDS: Oxybutynin 5 MG Tab.ER PO SCH (20:17)
[2016-09-10] MEDS: Melatonin 3 MG Tab PO SCH (20:17)
[2016-09-10] MEDS: Mirtazapine 15 MG Tab PO SCH (20:18)
[2016-09-10] MEDS: Levothyroxine 112 MCG Tab PO SCH (20:19)
[2016-09-10] MEDS: Metoprolol Succinate 25 MG Tab.ER PO SCH (20:20)
[2016-09-10] MEDS: risperiDONE 0.25 MG Tab PO SCH (20:20)
[2016-09-10] MEDS: Clopidogrel 75 MG Tab PO SCH (20:20)
[2016-09-11] MEDS: metroNIDAZOLE/Normal Saline 100 ML IV SCH ×3 (05:49→21:54)
[2016-09-11] MEDS: Acetaminophen 650 MG Tab.ER PO SCH ×3 (05:54→21:45)
[2016-09-11] MEDS: Gabapentin 100 MG Cap PO SCH ×3 (08:16→21:45)
[2016-09-11] MEDS: Sertraline 50 MG Tab PO SCH ×2 (08:16→20:44)
[2016-09-11] MEDS: Lidocaine 5% 700 MG Patch TOP SCH (08:16)
[2016-09-11] MEDS: cefTRIAXone 1 GM Vial IVPUSH SCH (17:34)
[2016-09-11] MEDS: Levothyroxine 112 MCG Tab PO SCH (20:31)
[2016-09-11] MEDS: Melatonin 3 MG Tab PO SCH (20:31)
[2016-09-11] MEDS: risperiDONE 0.25 MG Tab PO SCH (20:32)
[2016-09-11] MEDS: Clopidogrel 75 MG Tab PO SCH (20:32)
[2016-09-11] MEDS: Oxybutynin 5 MG Tab.ER PO SCH (20:32)
[2016-09-11] MEDS: Mirtazapine 15 MG Tab PO SCH (20:32)
[2016-09-11] MEDS: Metoprolol Succinate 25 MG Tab.ER PO SCH (20:33)
[2016-09-12] MEDS: metroNIDAZOLE/Normal Saline 100 ML IV SCH ×3 (05:56→23:53)
[2016-09-12] MEDS: Acetaminophen 650 MG Tab.ER PO SCH ×3 (06:00→21:44)
[2016-09-12] MEDS: Sodium Chloride 0.9% 5 ML Syringe FLUSH PRN (07:20)
[2016-09-12] MEDS: Gabapentin 100 MG Cap PO SCH ×3 (08:43→21:33)
[2016-09-12] MEDS: Lidocaine 5% 700 MG Patch TOP SCH (09:05)
[2016-09-12] MEDS: Sertraline 50 MG Tab PO SCH ×2 (09:05→21:38)
[2016-09-12] MEDS ORDERED: Sodium Chloride 0.9% 50 ML ONE (16:05)
[2016-09-12] MEDS: cefTRIAXone 1 GM Vial IVPUSH SCH (18:34)
[2016-09-12] MEDS: Levothyroxine 112 MCG Tab PO SCH (21:32)
[2016-09-12] MEDS: Oxybutynin 5 MG Tab.ER PO SCH (21:33)
[2016-09-12] MEDS: Melatonin 3 MG Tab PO SCH (21:33)
[2016-09-12] MEDS: Clopidogrel 75 MG Tab PO SCH (21:34)
[2016-09-12] MEDS: Mirtazapine 15 MG Tab PO SCH (21:35)
[2016-09-12] MEDS: risperiDONE 0.25 MG Tab PO SCH (21:37)
[2016-09-12] MEDS: Metoprolol Succinate 25 MG Tab.ER PO SCH (21:37)
[2016-09-13] MEDS: Acetaminophen 650 MG Tab.ER PO SCH ×3 (06:12→21:00)
[2016-09-13] MEDS: metroNIDAZOLE/Normal Saline 100 ML IV SCH (06:12)
[2016-09-13] MEDS ORDERED: Sodium Chloride 0.9% 100 ML ONE (06:21)
[2016-09-13] MEDS: Sodium Chloride 0.9% 5 ML Syringe FLUSH PRN (07:30)
[2016-09-13] MEDS: Lidocaine 5% 700 MG Patch TOP SCH (08:46)
[2016-09-13] MEDS: Gabapentin 100 MG Cap PO SCH (08:50)
[2016-09-13] MEDS: Sertraline 50 MG Tab PO SCH ×2 (08:54→20:14)
[2016-09-13] MEDS: cefTRIAXone 1 GM Vial IVPUSH SCH (15:23)
[2016-09-13] MEDS: Metoprolol Succinate 25 MG Tab.ER PO SCH (20:16)
[2016-09-13] MEDS: Oxybutynin 5 MG Tab.ER PO SCH (20:17)
[2016-09-13] MEDS: Clopidogrel 75 MG Tab PO SCH (20:18)
[2016-09-13] MEDS: Levothyroxine 112 MCG Tab PO SCH (20:18)
[2016-09-13] MEDS: risperiDONE 0.25 MG Tab PO SCH (20:19)
[2016-09-13] MEDS: Mirtazapine 15 MG Tab PO SCH (20:20)
[2016-09-13] MEDS: Melatonin 3 MG Tab PO SCH (20:21)
[2016-09-14] MEDS: Acetaminophen 650 MG Tab.ER PO SCH ×3 (05:09→21:46)
[2016-09-14] MEDS: Lidocaine 5% 700 MG Patch TOP SCH (08:37)
[2016-09-14] MEDS: Sertraline 50 MG Tab PO SCH ×2 (08:41→20:20)
[2016-09-14] MEDS: cefTRIAXone 1 GM Vial IVPUSH SCH (15:37)
[2016-09-14] MEDS: Oxybutynin 5 MG Tab.ER PO SCH (20:17)
[2016-09-14] MEDS: Levothyroxine 112 MCG Tab PO SCH (20:17)
[2016-09-14] MEDS: risperiDONE 0.25 MG Tab PO SCH (20:18)
[2016-09-14] MEDS: Melatonin 3 MG Tab PO SCH (20:19)
[2016-09-14] MEDS: Clopidogrel 75 MG Tab PO SCH (20:19)
[2016-09-14] MEDS: Metoprolol Succinate 25 MG Tab.ER PO SCH (20:20)
[2016-09-14] MEDS: Mirtazapine 15 MG Tab PO SCH (20:25)
[2016-09-15] MEDS: Acetaminophen 650 MG Tab.ER PO SCH ×3 (05:12→21:32)
[2016-09-15] MEDS: Lidocaine 5% 700 MG Patch TOP SCH (08:20)
[2016-09-15] MEDS: Sertraline 50 MG Tab PO SCH ×2 (08:20→20:23)
[2016-09-15] MEDS: cefTRIAXone 1 GM Vial IVPUSH SCH (15:32)
[2016-09-15] MEDS: Oxybutynin 5 MG Tab.ER PO SCH (20:19)
[2016-09-15] MEDS: Melatonin 3 MG Tab PO SCH (20:20)
[2016-09-15] MEDS: Clopidogrel 75 MG Tab PO SCH (20:20)
[2016-09-15] MEDS: Mirtazapine 15 MG Tab PO SCH (20:21)
[2016-09-15] MEDS: risperiDONE 0.25 MG Tab PO SCH (20:22)
[2016-09-15] MEDS: Metoprolol Succinate 25 MG Tab.ER PO SCH (20:22)
[2016-09-15] MEDS: Levothyroxine 112 MCG Tab PO SCH (20:25)
[2016-09-16] MEDS: Acetaminophen 650 MG Tab.ER PO SCH ×3 (05:56→21:29)
[2016-09-16] MEDS: Lidocaine 5% 700 MG Patch TOP SCH (08:51)
[2016-09-16] MEDS: Sertraline 50 MG Tab PO SCH ×2 (08:52→20:28)
[2016-09-16] MEDS: cefTRIAXone 1 GM Vial IVPUSH SCH (17:01)
[2016-09-16] MEDS: Melatonin 3 MG Tab PO SCH (20:26)
[2016-09-16] MEDS: Levothyroxine 112 MCG Tab PO SCH (20:26)
[2016-09-16] MEDS: Mirtazapine 15 MG Tab PO SCH (20:27)
[2016-09-16] MEDS: risperiDONE 0.25 MG Tab PO SCH (20:27)
[2016-09-16] MEDS: Metoprolol Succinate 25 MG Tab.ER PO SCH (20:27)
[2016-09-16] MEDS: Oxybutynin 5 MG Tab.ER PO SCH (20:27)
[2016-09-16] MEDS: Clopidogrel 75 MG Tab PO SCH (20:27)
[2016-09-17] MEDS: Acetaminophen 650 MG Tab.ER PO SCH ×3 (05:18→21:10)
[2016-09-17] MEDS: Lidocaine 5% 700 MG Patch TOP SCH (08:40)
[2016-09-17] MEDS: Sertraline 50 MG Tab PO SCH ×2 (08:41→20:22)
[2016-09-17] MEDS: amLODIPine 5 MG Tab PO SCH (09:32)
[2016-09-17] MEDS: traMADol 50 MG Tab PO PRN (11:16)
--- NOTE | 2016-09-17 11:19 | PN ---
09/17/2016 PATIENT NAME: LUISA NUNEZ SUBJECTIVE: This is an 89-year-old female patient who has a history of dementia and she was living with her daughter. She was recently admitted to acute care status through the emergency room back on 09/04/2016. The patient was having some groin pain and left lower abdominal pain. This pain was severe. She was thought to be having some episodes of diverticulitis. She also has a recent shingles infection that she was dealing with. Now today, the patient seems to be doing much better. She is in no pain. She seems to be eating well. She has no complaints of today. OBJECTIVE: VITAL SIGNS: Temperature is 97.6, blood pressure is 152/82, respiratory rate is 15, oxygen saturations on room air is 95%. The patient did not have any lab work drawn today. GENERAL: This is an elderly white female, in no acute distress. LUNGS: Sounds are clear in upper lobes, slightly diminished at bilateral bases. ABDOMEN: Soft, nontender, nondistended. Bowel sounds present x4. HEART: Tones are regular rate and rhythm. The patient does have a pacemaker in place. IMPRESSION AND PLAN: 1. Possible diverticulitis with left lower quadrant pain. Plan: This is mostly resolved. The patient has no further pain. We will stop the patient's IV Rocephin today. She seems to be tolerating, eating well with no pain. 2. Lumbar and thoracic disk disease. Plan: We are going to try to set the patient up for an outpatient epidural lumbar injection with Dr. Amie Domingo. At this time, we are given the patient Lidoderm patch for pain, some Tylenol, Voltaren gel, and tramadol as needed to help with her back pain. 3. Recent shingles infection. Plan: We will continue with calamine lotion to the affected rash area. The patient's gabapentin has been discontinued. She no longer has the postherpetic neuralgia pain. 4. Recent urinary tract infection. This is resolved. We are going to discontinue the patient's Rocephin today. 5. History of anemia. Plan: The patient's hemoglobin stable. 6. Generalized weakness. Plan: Continue with physical therapy for generalized strengthening and conditioning. 7. Coronary artery disease with history of myocardial infarction with cardiac pacemaker placement. We are going to continue with Plavix 75 mg daily. She has been stable. 8. Hypertension, which has been uncontrolled. We are going to continue with the patient's Toprol-XL 25 mg daily along with Diovan 160 mg daily. We are going to add amlodipine 5 mg daily and continue to monitor blood pressures closely. 9. History of depression. Plan: Continue with Zoloft 100 mg twice a day. 10.History of dementia. Plan: Continue with Risperdal 0.25 mg at bedtime. 11.History of chronic kidney disease. Her GFR has been stable. We will continue to monitor. 12.History of hypothyroidism. Plan: We will continue with levothyroxine 112 mcg daily. 13.History of macular degeneration, stable. 14.Overactive bladder. Continue with Ditropan 10 mg daily at bedtime. 15.Insomnia. Plan: We will continue with melatonin and Remeron at bedtime for sleep. OVERALL PLAN: We discontinue the patient's Rocephin IV today for the diverticulitis and urinary tract infection treatment and also the patient's blood pressure has been high, so we did add amlodipine 5 mg daily. /[id number]/MODL MTDD
[2016-09-17] MEDS: Diclofenac Sodium 1% Gel 100 GM Tube TOP PRN (11:20)
[2016-09-17] MEDS: Metoprolol Succinate 25 MG Tab.ER PO SCH (20:21)
[2016-09-17] MEDS: Levothyroxine 112 MCG Tab PO SCH (20:21)
[2016-09-17] MEDS: Clopidogrel 75 MG Tab PO SCH (20:21)
[2016-09-17] MEDS: Oxybutynin 5 MG Tab.ER PO SCH (20:21)
[2016-09-17] MEDS: Melatonin 3 MG Tab PO SCH (20:22)
[2016-09-17] MEDS: risperiDONE 0.25 MG Tab PO SCH (20:22)
[2016-09-17] MEDS: Mirtazapine 15 MG Tab PO SCH (20:22)
[2016-09-18] MEDS: Acetaminophen 650 MG Tab.ER PO SCH ×3 (05:00→22:00)
[2016-09-18] MEDS: Lidocaine 5% 700 MG Patch TOP SCH (09:00)
[2016-09-18] MEDS: Sertraline 50 MG Tab PO SCH ×2 (09:01→20:07)
[2016-09-18] MEDS: amLODIPine 5 MG Tab PO SCH (09:03)
[2016-09-18] MEDS: Diclofenac Sodium 1% Gel 100 GM Tube TOP PRN (09:04)
[2016-09-18] MEDS: Oxybutynin 5 MG Tab.ER PO SCH (20:05)
[2016-09-18] MEDS: Levothyroxine 112 MCG Tab PO SCH (20:05)
[2016-09-18] MEDS: Melatonin 3 MG Tab PO SCH (20:06)
[2016-09-18] MEDS: Clopidogrel 75 MG Tab PO SCH (20:06)
[2016-09-18] MEDS: risperiDONE 0.25 MG Tab PO SCH (20:06)
[2016-09-18] MEDS: Metoprolol Succinate 25 MG Tab.ER PO SCH (20:07)
[2016-09-18] MEDS: Mirtazapine 15 MG Tab PO SCH (20:08)
[2016-09-19] MEDS: Acetaminophen 650 MG Tab.ER PO SCH (05:21)
[2016-09-19 06:51] VITALS: BP 155/85
[2016-09-19] MEDS: Lidocaine 5% 700 MG Patch TOP SCH (08:09)
[2016-09-19] MEDS: amLODIPine 5 MG Tab PO SCH (08:09)
[2016-09-19] MEDS: Sertraline 50 MG Tab PO SCH (08:10)
[2016-09-19] MEDS: traMADol 50 MG Tab PO PRN (08:11)
[2016-09-19] MEDS: Diclofenac Sodium 1% Gel 100 GM Tube TOP PRN (09:00)
[2016-09-19] MEDS ORDERED: Mirtazapine 15 MG Tab PO SCH (21:00)
--- NOTE | 2016-09-20 08:10 | DISCH ---
ADMITTING DIAGNOSIS: Shingles, pain to her left hip area, and low back pain. FINAL DIAGNOSIS: 1. Shingles, improving. 2. Left hip and left lower back pain, improved. BRIEF HISTORY AND ESSENTIAL FINDINGS: This is an 89-year-old female patient with a history of dementia that usually lives with her daughter. The patient was having left groin pain and left lower abdominal pain back on 09/04/2016. Her daughter had brought her to the emergency room at that time for evaluation. The patient was in severe pain. She was admitted to the hospital at that time. The patient had a shingles herpes zoster rash on her right flank area at that time. Patient had been on antiviral therapy for two weeks prior. The patient was very confused with her dementia upon admission. She is usually pleasantly confused. The patient denies any fever, nausea, vomiting, or chest pain or diarrhea upon admission. The patient was treated with antibiotic therapy for possible diverticulitis with the left lower quadrant pain. Her pain did improve on antibiotic therapy, although radiograph reports were not consistent with diverticulitis. The patient does have history of degenerative disc disease also. SIGNIFICANT LABSX-RAYSAND CONSULTATION FINDINGS: The patient had an MRI of lumbar spine back on 09/12/2016. The impression per Radiology, mild acute-to- subacute L3 compression fracture, grade 1 degenerative L4-L5 spondylolisthesis. She has multiple-level lumbar spondylosis, is most significant at L4-L5 where there is [id number] central stenosis and compression of the transferring bilateral L5 nerve roots within the lateral recesses per Radiology. The patient's lab work that was obtained on 09/09/2016: CBC showed a white count within normal range at 7.7, hemoglobin 11.8, platelet count at 168. The patient's sedimentation rate back on 09/03/2016 was 54. Chemistry panel back on 09/09/2016 was unremarkable. The patient's urinalysis that was obtained back on 09/09/2016 was unremarkable also. Repeat lab work on day of discharge CBC showed WBC 9.7, Hgb 12.3 and platelets at 262. Chemistry panel was unremarkable except alk phos was elevated at 137 and albumin was low at 2.79. COURSE IN HOSPITAL WITH COMPLICATIONS IF ANY: The patient's left lower quadrant pain did improve with IV antibiotic therapy. She continued to have some left hip pain with ambulation. The patient was given tramadol, Tylenol, Lidoderm patch, and Voltaren gel for the left hip pain, it did seem to improve also. Patient's shingles rash did improve with calamine lotion. She never really complained of pain from the shingles. IMPRESSION AND PLAN: 1. Possible diverticulitis with left lower quadrant pain. This is mostly resolved. The patient has no further pain. The patient's IV antibiotics have been stopped a few days ago. She has been eating well. Tolerating diet with no pain. 2. Lumbar and thoracic disc disease. Plan: Continue with Tylenol, tramadol, and Voltaren gel as needed, possibly physical therapy at group home. Sometime in the future, the patient may need a lumbar injection. 3. Recent shingles infection. Plan: Continue with calamine lotion to the affected rash area. The patient was on gabapentin and this has been discontinued. She no further has post herpetic neuralgia pain to that area. 4. Recent urinary tract infection. This has resolved. The patient's Rocephin was discontinued three days ago. 5. History of anemia. Plan: The patient's hemoglobin has been stable, 12.3 at discharge. 6. Generalized weakness. Plan: Continue with physical therapy at [facility], for generalized strengthening and conditioning. 7. Coronary artery disease with history of myocardial infarction with cardiac pacemaker in place. Plan: Continue with Plavix 75 mg daily. 8. Hypertension. Continue with Toprol-XL 25 mg daily along with Diovan 160 mg daily. Continue with amlodipine 5 mg daily. 9. History of depression. Plan: Continue with Zoloft 100 mg daily. 10.History of dementia. Plan: Continue with Risperdal 0.25 mg at bedtime. 11.History of chronic kidney disease. Her GFR has been stable. Creatinine and BUN with in normal range at discharge. 12.History of hypothyroidism. Plan: Continue with levothyroxine 112 mcg daily. 13.History of macular degeneration, stable. 14.Overactive bladder. Continue with Ditropan 10 mg daily at bedtime. 15.Insomnia. Plan: Continue with melatonin 6 mg along with Remeron 15 mg at bedtime for sleep. OVERALL PLAN: The patient can be transferred to [facility] in [place] today. The few med changes that we are going to change today prior to the patient being transferred, is decrease in Zoloft from 100 mg twice a day to once daily, discontinue the Lidoderm patch and decrease Remeron to 15 mg nightly at bedtime instead of 22 mg. Continue with physical therapy. Patient may need lumbar injection for pain control to lumbar spine. /[id number]/MODL MTDD
[2016-09-20] MEDS ORDERED: Sertraline 50 MG Tab PO SCH (09:00)
--- NOTE | 2016-09-26 08:36 | DISCH ---
ADDENDUM: SIGNIFICANT LABS, X-RAYS AND CONSULTATION FINDINGS: The patient had lumbar MRI obtained on 09/12/2016, which the impression per Radiology read, 1. Mild acute to subacute L3 compression fracture. 2. Grade 1 degenerative L4-L5 spondylolisthesis. 3. Multiple-level spondylosis, is most significant at L4-L5 where there is moderate to severe central stenosis and compression of the traversing bilateral L5 nerve roots within the lateral recesses. /[id number]/MODL
== END 2016-09-19 10:30 | DRG 596 ==
LOC: KA.MS 10:24
PROVIDERS: ADMIT Nurse Practitioner Family; ATTEND Nurse Practitioner Family
DX: B02.9 Zoster without complications (principal); M48.56XA Collapsed vertebra, not elsewhere classified, lumbar region, initial encounter for fracture; K57.32 Diverticulitis of large intestine without perforation or abscess without bleeding; N39.0 Urinary tract infection, site not specified; M54.5 Low back pain; M25.552 Pain in left hip; F03.90 Unspecified dementia, unspecified severity, without behavioral disturbance, psychotic disturbance, mood disturbance, and anxiety; M51.36 Other intervertebral disc degeneration, lumbar region; M47.9 Spondylosis, unspecified; M48.06 Spinal stenosis, lumbar region; I25.10 Atherosclerotic heart disease of native coronary artery without angina pectoris; Z95.0 Presence of cardiac pacemaker; F32.9 Major depressive disorder, single episode, unspecified; E03.9 Hypothyroidism, unspecified; R53.1 Weakness; I12.9 Hypertensive chronic kidney disease with stage 1 through stage 4 chronic kidney disease, or unspecified chronic kidney disease; N18.3 Chronic kidney disease, stage 3 (moderate); K21.9 Gastro-esophageal reflux disease without esophagitis; D64.9 Anemia, unspecified; Z88.0 Allergy status to penicillin; I25.2 Old myocardial infarction
CPT/HCPCS: 36415; 72148; 80053; 85025; 97110-GP; 97163-GP; A9270-GY; J0696; J7050